=== PATIENT | male | born 1995 | race Caucasian/White ===

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

== ENCOUNTER 2017-09-02 19:32 | Emergency (ER) | payer OTHER ==
[2017-09-02 19:45] VITALS: BP 116/71
--- NOTE | 2017-09-02 20:06 | ER Document Report ---
ED General - General Chief Complaint: Medication Refill Stated Complaint: MED REFILL Time Seen by Provider: 09/02/17 19:57 Mode of Arrival: Ambulatory Information source: Patient, [facility] Records Notes: 22-year-old male diabetic has run out of his Humalog FlexPen. Needs refill. Has an appointment with his doctor on September 25 of this year. No other complaints. States he does have enough of his Lantus. TRAVEL OUTSIDE OF THE [place] IN LAST 30 DAYS: No - Related Data Allergies/Adverse Reactions: No Known Allergies Allergy (Verified 09/30/16 21:07) Past Medical History - General Information source: Patient, [facility] Records - Social History Smoking Status: Former Smoker Cigarette use (# per day): No Chew tobacco use (# tins/day): Yes Smoking Education Provided: No Frequency of alcohol use: Rare Drug Abuse: None Occupation: Unemployed Lives with: Parents Family History: Arthritis, CAD, COPD, CVA, DM, Hyperlipidemia, Hypertension, Thyroid Disfunction Patient has suicidal ideation: No Patient has homicidal ideation: No - Past Medical History Cardiac Medical History: Reports: None Pulmonary Medical History: Reports: None EENT Medical History: Reports: None Neurological Medical History: Reports: Hx Migraine Endocrine Medical History: Reports: Hx Diabetes Mellitus Type 1 Renal/ Medical History: Reports: None GI Medical History: Reports: Hx Gastroesophageal Reflux Disease Musculoskeltal Medical History: Reports None Skin Medical History: Reports None Psychiatric Medical History: Reports: Hx Bipolar Disorder, Hx Depression Past Surgical History: Reports: Hx Myringotomy, Hx Orthopedic Surgery - right hand - Immunizations Immunizations up to date: Yes Hx Diphtheria, Pertussis, Tetanus Vaccination: Yes - 2016 Review of Systems - Review of Systems Constitutional: No symptoms reported EENT: No symptoms reported Cardiovascular: No symptoms reported Respiratory: No symptoms reported Gastrointestinal: No symptoms reported Genitourinary: No symptoms reported Musculoskeletal: No symptoms reported Skin: No symptoms reported Hematologic/Lymphatic: No symptoms reported Neurological/Psychological: No symptoms reported Physical Exam - Vital signs Vitals: Temp Pulse Resp BP Pulse Ox 97.7 F 71 14 116/71 100 09/02/17 19:43 09/02/17 19:43 09/02/17 19:43 09/02/17 19:43 09/02/17 19:43 Interpretation: Normal - General General appearance: Appears well, Alert In distress: None - HEENT Head: Normocephalic, Atraumatic Eyes: Normal Pupils: PERRL - Respiratory Respiratory status: No respiratory distress - Cardiovascular Rhythm: Regular - Abdominal Inspection: Normal - Back Back: Normal - Extremities General upper extremity: Normal inspection General lower extremity: Normal inspection - Neurological Neuro grossly intact: Yes - Psychological Associated symptoms: Normal affect, Normal mood - Skin Skin Temperature: Warm Skin Moisture: Dry Skin Color: Normal Course - Vital Signs Vital signs: Temp Pulse Resp BP Pulse Ox 97.7 F 71 14 116/71 100 09/02/17 19:43 09/02/17 19:43 09/02/17 19:43 09/02/17 19:43 09/02/17 19:43 Discharge - Discharge Clinical Impression: Encounter for medication refill Condition: Stable Disposition: HOME, SELF-CARE Additional Instructions: Take the medication as prescribed. Follow up with your doctor on September 25 as scheduled. RETURN TO THE EMERGENCY ROOM IF ANY NEW OR WORSENING SYMPTOMS. Prescriptions: Insulin Lispro [Humalog Kwikpen U-100] 100 unit SQ ASDIR PRN #5 [email or web address] PRN Reason:
== END 2017-09-02 20:10 | disposition home or self-care (01) ==
LOC: ER 19:32
DX: Z76.0 Encounter for issue of repeat prescription (principal); E11.9 Type 2 diabetes mellitus without complications; Z79.4 Long term (current) use of insulin; Z87.891 Personal history of nicotine dependence
CPT/HCPCS: 99281

== ENCOUNTER 2018-01-28 13:19 | Emergency (ER) | payer OTHER ==
--- NOTE | 2018-01-28 14:37 | ER Document Report ---
ED Skin Rash/Insect Bite/Abscs - General Chief Complaint: Ear Pain Stated Complaint: EAR PAIN Time Seen by Provider: 01/28/18 14:28 Mode of Arrival: Ambulatory Information source: Patient TRAVEL OUTSIDE OF THE [place] IN LAST 30 DAYS: No - HPI Patient complains to provider of: Tender/swollen area Notes: Patient is here with complaints of swelling and tenderness to the right earlobe. States there is a area to the posterior aspect of the right earlobe that was tender and swollen this morning. He states that his girlfriend squeezed it and there was some pus that came out but they feel like they are still stuff inside the earlobe. No fever. States that he had a headache and vomiting a few days ago, but denies any headache or vomiting today. He is a diabetic. He denies any chest pain or shortness of breath. No redness. Had a pilonidal abscess in the past. He denies any allergies. He denies any other complaints at this time. - Related Data Allergies/Adverse Reactions: No Known Allergies Allergy (Verified 09/30/16 21:07) Past Medical History - Social History Smoking Status: Current Every Day Smoker Chew tobacco use (# tins/day): No Frequency of alcohol use: None Drug Abuse: None Family History: Arthritis, CAD, COPD, CVA, DM, Hyperlipidemia, Hypertension, Thyroid Disfunction Patient has suicidal ideation: No Patient has homicidal ideation: No - Past Medical History Cardiac Medical History: Denies: Hx Congestive Heart Failure, Hx Coronary Artery Disease, Hx Heart Attack, Hx Hypertension Pulmonary Medical History: Denies: Hx Asthma, Hx Bronchitis, Hx COPD, Hx Pneumonia, Hx Tuberculosis Neurological Medical History: Reports: Hx Migraine. Denies: Hx Cerebrovascular Accident, Hx Seizures Endocrine Medical History: Reports: Hx Diabetes Mellitus Type 1 Renal/ Medical History: Denies: Hx Benign Prostatic Hyperplasia, Hx End Stage Renal Disease, Hx Kidney Stones, Hx Peritoneal Dialysis GI Medical History: Reports: Hx Gastroesophageal Reflux Disease. Denies: Hx Cirrhosis, Hx Ulcer Musculoskeltal Medical History: Denies Hx Arthritis, Denies Hx Multiple Sclerosis Psychiatric Medical History: Reports: Hx Bipolar Disorder, Hx Depression Denies: Hx Schizophrenia Past Surgical History: Reports: Hx Myringotomy, Hx Orthopedic Surgery - right hand - Immunizations Immunizations up to date: Yes Hx Diphtheria, Pertussis, Tetanus Vaccination: Yes - 2017 Review of Systems - Review of Systems -: Yes All other systems reviewed and negative Physical Exam - Vital signs Vitals: Temp Pulse Resp BP Pulse Ox 99.0 F 74 16 115/65 97 01/28/18 13:42 01/28/18 13:42 01/28/18 13:42 01/28/18 13:42 01/28/18 13:42 - Notes Notes: GENERAL: alert, cooperative, nontoxic, no distress. HEAD: normocephalic, atraumatic EYES: conjunctiva pink without discharge, no external redness or swelling. EARS: Soft fluctuant tender abscess to the right earlobe on the posterior aspect. No significant redness. Mild tenderness to palpation. Mastoid is unremarkable. NOSE: atraumatic, no external swelling MOUTH/THROAT: mucous membranes moist and pink NECK: soft, supple, full range of motion, no meningismus. CHEST: no distress, lungs clear and equal throughout. No wheezing, rales, rhonchi. CARDIAC: regular rate and rhythm, no murmur, normal capillary refill, normal pulses. BACK: full range of motion, no CVA tenderness. EXTREMITIES: full range of motion of all extremities. No redness, no swelling. NEURO: alert and oriented 3, no focal deficits, full range of motion of all extremities. PYSCH: appropriate mood, affect. Patient is cooperative. SKIN: pink, warm, dry, no rash. Course - Re-evaluation Re-evalutation: 01/28/18 15:08 Patient is nontoxic appearing stable vitals. Is here with complaints of abscess to the right earlobe. He is noted to have a small fluctuant abscess to the posterior aspect of the right earlobe. No significant cellulitis. No fever. The patient is a diabetic. Was able to express a moderate amount of purulent material from the earlobe. Sterile dressing was applied. The patient will be placed on Bactrim due to his history of abscess and diabetes. He was instructed to apply warm compresses sore area. He states it does not hurt significantly, so he was instructed to take Tylenol or Motrin as needed for pain. Apply warm compresses. Follow-up if not improved in the next 2 days, sooner for worsening pain, fever, numbness, tingling, weakness, any further concerns. The patient's emergency department workup and current diagnosis were explained to the patient and or family. Follow-up instructions were provided. Medications if prescribed were discussed. Instructions for when to return to the emergency department including specific worrisome symptoms were discussed with the patient and/or family. - Vital Signs Vital signs: Temp Pulse Resp BP Pulse Ox 99.0 F 74 16 115/65 97 01/28/18 13:42 01/28/18 13:42 01/28/18 13:42 01/28/18 13:42 01/28/18 13:42 Procedures - Incision and Drainage right ear lobe Type: Simple Anesthetic type: 1% Lidocaine Blade size: 11 I&D procedure: Shurclens applied Incision Method: Incision made by scalpel Amount/type of drainage: moderate purulent Discharge - Discharge Clinical Impression: Abscess, earlobe Qualifiers: Laterality: right Qualified Code(s): H60.01 - Abscess of right external ear Condition: Stable Disposition: HOME, SELF-CARE Instructions: Abscess ([facility]), Post Incision and Drainage, Trimethoprim-Sulfa ( [facility]) Additional Instructions: Take medication as prescribed. Apply warm compresses to sore area. Take Tylenol and Motrin as needed for pain. Follow-up if not improved in the next 2- 3 days, sooner for worsening pain, fever, swelling, redness, [id number] blood sugar, or for any further concerns. Prescriptions: Sulfamethoxazole/Trimethoprim [Bactrim Ds Tablet] 1 each PO BID #20 tablet Forms: Smoking Cessation Education Referrals: [facility] [Provider Group] - Follow up as needed
[2018-01-28 15:36] VITALS: BP 117/70
== END 2018-01-28 15:36 | disposition home or self-care (01) ==
LOC: ER 13:19
PROC: 0H92XZZ Drainage of Right Ear Skin, External Approach (ICD-10-PCS; principal; 2018-01-28)
DX: H60.01 Abscess of right external ear (principal); F17.200 Nicotine dependence, unspecified, uncomplicated; E10.9 Type 1 diabetes mellitus without complications
CPT/HCPCS: 99283

== ENCOUNTER 2018-05-16 13:53 | Inpatient (IN) | payer OTHER ==
[2018-05-16] MEDS ORDERED: NORMAL SALINE 1000 ML 1,000 ML IV ONE ×2 (14:22→19:01)
[2018-05-16] MEDS ORDERED: INSULIN REG, HUMAN 100 UNIT/ML 3 ML VIAL (PYX) IV ONE (14:24)
[2018-05-16] MEDS ORDERED: NORMAL SALINE 1000 ML 1,000 ML IV PRN ×2 (14:25→20:38)
--- NOTE | 2018-05-16 14:26 | ER Document Report ---
ED Medical Screen (RME) - General Chief Complaint: High Blood Sugar Stated Complaint: BLOOD SUGAR ISSUES Time Seen by Provider: 05/16/18 14:20 Notes: 22 years old male with a history of type 1 diabetes, was not checking his blood sugar for the last few days because he ran out of the strips. This morning he was able to check and he found it to be around 580 therefore present to the ED. With nausea and general malaise and abdominal discomfort. TRAVEL OUTSIDE OF THE [place] IN LAST 30 DAYS: No - Related Data Allergies/Adverse Reactions: No Known Allergies Allergy (Verified 05/16/18 13:54) Past Medical History - Social History Chew tobacco use (# tins/day): Yes - Past Medical History Cardiac Medical History: Denies: Hx Congestive Heart Failure, Hx Coronary Artery Disease, Hx Heart Attack, Hx Hypertension Pulmonary Medical History: Denies: Hx Asthma, Hx Bronchitis, Hx COPD, Hx Pneumonia, Hx Tuberculosis Neurological Medical History: Reports: Hx Migraine. Denies: Hx Cerebrovascular Accident, Hx Seizures Endocrine Medical History: Reports: Hx Diabetes Mellitus Type 1 Renal/ Medical History: Denies: Hx Benign Prostatic Hyperplasia, Hx End Stage Renal Disease, Hx Kidney Stones, Hx Peritoneal Dialysis GI Medical History: Reports: Hx Gastroesophageal Reflux Disease. Denies: Hx Cirrhosis, Hx Ulcer Musculoskeltal Medical History: Denies Hx Arthritis, Denies Hx Multiple Sclerosis Psychiatric Medical History: Reports: Hx Bipolar Disorder, Hx Depression Denies: Hx Schizophrenia Past Surgical History: Reports: Hx Myringotomy, Hx Orthopedic Surgery - right hand - Immunizations Immunizations up to date: Yes Hx Diphtheria, Pertussis, Tetanus Vaccination: Yes - 2017 Physical Exam - Vital signs Vitals: Temp Pulse Resp BP Pulse Ox 98.2 F 99 12 125/72 98 05/16/18 14:00 05/16/18 14:00 05/16/18 14:00 05/16/18 14:00 05/16/18 14:00 Course - Vital Signs Vital signs: Temp Pulse Resp BP Pulse Ox 98.2 F 99 12 125/72 98 05/16/18 14:00 05/16/18 14:00 05/16/18 14:00 05/16/18 14:00 05/16/18 14:00 Doctor's Discharge - Discharge Referrals: ANIA HAMM FNP [Primary Care Provider] - Follow up as needed
[2018-05-16 15:19] LABS: ABSOLUTE EOSINOPHILS # (AUTO) 0.1 10^3/uL (0.0-0.6); ABSOLUTE LYMPHOCYTES (AUTO) 1.8 10^3/uL (0.5-4.7); ABSOLUTE MONOCYTES (AUTO) 0.9 10^3/uL (0.1-1.4); ABSOLUTE NEUT (AUTO) 9.3 10^3/uL (1.7-8.2); BASOPHILS % (AUTO) 0.2 % (0-2); EOSINOPHILS % (AUTO) 0.6 % (0-6); HEMATOCRIT 48.5 % (37.9-51.0); HEMOGLOBIN 16.4 g/dL (13.5-17.0); LYMPHOCYTES % (AUTO) 15.1 % (13-45); MEAN CORPUSCULAR HEMOGLOBIN 32.2 pg (27.0-33.4); MEAN CORPUSCULAR HGB CONC 33.9 g/dL (32.0-36.0); MEAN CORPUSCULAR VOLUME 95 fl (80-97); MONOCYTES % (AUTO) 7.6 % (3-13); PLATELET COUNT 269 10^3/uL (150-450); RED BLOOD COUNT 5.11 10^6/uL (4.35-5.55); RED CELL DISTRIBUTION WIDTH 13.2 % (11.5-14.0); SEGMENTED NEUTROPHILS % (AUTO) 76.5 % (42-78); TOTAL CELLS COUNTED % (AUTO) 100 %; WHITE BLOOD COUNT 12.1 10^3/uL (4.0-10.5)
[2018-05-16 15:23] LABS: APPEARANCE,URINE CLEAR; BILIRUBIN,URINE NEGATIVE (NEGATIVE); COLOR,URINE YELLOW; GLUCOSE, URINE >=500 mg/dL (NEGATIVE); KETONES,URINE 80 mg/dL (NEGATIVE); LEUKOCYTE ESTERASE,URINE NEGATIVE (NEGATIVE); NITRITE,URINE NEGATIVE (NEGATIVE); PROTEIN,URINE 30 mg/dL (NEGATIVE); URINE SPECIFIC GRAVITY 1.028; UROBILINOGEN,URINE NEGATIVE mg/dL (<2.0)
[2018-05-16 15:41] LABS: ALANINE AMINOTRANSFERASE 24 U/L (21-72); ALBUMIN 5.2 g/dL (3.5-5.0); ALKALINE PHOSPHATASE 102 U/L (38-126); ASPARTATE AMINO TRANSFERASE 17 U/L (17-59); BILIRUBIN,DIRECT 0.6 mg/dL (0.0-0.4); BILIRUBIN,TOTAL 1.6 mg/dL (0.2-1.3); BLOOD UREA NITROGEN 14 mg/dL (7-20); GLUCOSE 319 mg/dL (75-110); POTASSIUM 5.5 mmol/L (3.6-5.0); TOTAL PROTEIN 8.1 g/dL (6.3-8.2)
[2018-05-16 15:49] LABS: CARBON DIOXIDE 15 mmol/L (22-30); CHLORIDE 103 mmol/L (98-107); SODIUM 139.6 mmol/L (137-145)
[2018-05-16 15:51] LABS: ANION GAP 22 (5-19)
[2018-05-16] MEDS ORDERED: ONDANSETRON 4 MG TAB.RAPDIS PO ONE (18:17)
[2018-05-16 18:49] LABS: VENOUS BLOOD BASE EXCESS -14.7 mmol/L; VENOUS BLOOD HCO3 12.2 mmol/L (20-32); VENOUS BLOOD PCO2 32.6 mmHg (35-63)
[2018-05-16] MEDS ORDERED: ONDANSETRON HCL INJ/PF 4 MG/2 ML SDV IV ONE (18:51)
[2018-05-16 18:53] LABS: VENOUS BLOOD PH 7.19 (7.30-7.42)
--- NOTE | 2018-05-16 18:53 | ER Document Report ---
ED General - General Chief Complaint: High Blood Sugar Stated Complaint: BLOOD SUGAR ISSUES Time Seen by Provider: 05/16/18 14:20 Notes: Patient is a 22-year-old male with history of diabetes mellitus type 1 that presents to the emergency department for chief complaint of High blood sugar, nausea and vomiting. Patient states that he missed his dose of Lantus usually has a 32 units at night, and this morning around 7 AM he started feeling very nauseous, had abdominal cramping, he took his blood glucose in the right greater than 500 so he came to the emergency department. He has had near DKA in the past, but has not been admitted for. He states that he feels extremely nauseous, has vomited several times. Denies having any recent fevers, chills, night sweats, chest pain, shortness of breath, difficulty breathing, dysuria or hematuria. He does admit to having polydipsia polyuria. He usually does use a sliding scale and Humalog with meals which she did not receive today. Past Medical History: Diabetes mellitus, bipolar disorder Past Surgical History: Tympanostomy tubes, finger surgery Social History: Admits to chewing tobacco, alcohol or drug use Family History: Reviewed and noncontributory for presenting illness Allergies: Reviewed, see documented allergy list. REVIEW OF SYSTEMS: Unless otherwise stated in this report the patient's positive and negative responses for review of systems for constitutional, eyes, ENT, cardiovascular, respiratory, gastrointestinal, neurological, genitourinary, musculoskeletal, and integumentary systems and related systems to the presenting problem are either as stated in the HPI or were not pertinent or were negative for the symptoms and/or complaints related to the presenting medical problem. PHYSICAL EXAMINATION: Vital signs reviewed, nursing noted reviewed. GENERAL: Ill-appearing male, appears uncomfortable, dry heaving HEAD: Atraumatic, normocephalic. EYES: Eyes appear normal, extraocular movements intact, sclera anicteric, conjunctiva are normal. ENT: nares patent, oropharynx clear without exudates. Dry mucous membranes NECK: Normal range of motion, supple without lymphadenopathy LUNGS: Breath sounds clear to auscultation bilaterally and equal. No wheezes rales or rhonchi. HEART: Regular rate and rhythm without murmurs ABDOMEN: Soft, mild diffuse abdominal tenderness, normoactive bowel sounds. No rebound, guarding, or rigidity. No masses appreciated. EXTREMITIES: Nontender, good range of motion, no pitting or edema. NEUROLOGICAL: No focal neurological deficits. Moves all extremities spontaneously Motor and sensory grossly intact on exam. PSYCH: He is uncomfortable, but appropriate SKIN: Warm, Dry, normal turgor, no rashes or lesions noted on exposed skin TRAVEL OUTSIDE OF THE [place] IN LAST 30 DAYS: No - Related Data Allergies/Adverse Reactions: No Known Allergies Allergy (Verified 05/16/18 13:54) Past Medical History - Social History Smoking Status: Never Smoker Chew tobacco use (# tins/day): Yes Family History: Arthritis, CAD, COPD, CVA, DM, Hyperlipidemia, Hypertension, Thyroid Disfunction Patient has suicidal ideation: No Patient has homicidal ideation: No - Past Medical History Cardiac Medical History: Denies: Hx Congestive Heart Failure, Hx Coronary Artery Disease, Hx Heart Attack, Hx Hypertension Pulmonary Medical History: Denies: Hx Asthma, Hx Bronchitis, Hx COPD, Hx Pneumonia, Hx Tuberculosis Neurological Medical History: Reports: Hx Migraine. Denies: Hx Cerebrovascular Accident, Hx Seizures Endocrine Medical History: Reports: Hx Diabetes Mellitus Type 1 Renal/ Medical History: Denies: Hx Benign Prostatic Hyperplasia, Hx End Stage Renal Disease, Hx Kidney Stones, Hx Peritoneal Dialysis GI Medical History: Reports: Hx Gastroesophageal Reflux Disease. Denies: Hx Cirrhosis, Hx Ulcer Musculoskeletal Medical History: Denies Hx Arthritis, Denies Hx Multiple Sclerosis Psychiatric Medical History: Reports: Hx Bipolar Disorder, Hx Depression Denies: Hx Schizophrenia Past Surgical History: Reports: Hx Myringotomy, Hx Orthopedic Surgery - right hand - Immunizations Immunizations up to date: Yes Hx Diphtheria, Pertussis, Tetanus Vaccination: Yes - 2016 Physical Exam - Vital signs Vitals: Temp Pulse Resp BP Pulse Ox 98.2 F 99 12 125/72 98 05/16/18 14:00 05/16/18 14:00 05/16/18 14:00 05/16/18 14:00 05/16/18 14:00 Course - Re-evaluation Re-evalutation: Patient seen and examined vital signs reviewed. Laboratory data and imaging were ordered as appropriate for the patient's presenting symptoms and complaint, with consideration of any critical or life threatening conditions that may be associated with their obtained history and exam as noted above. Patient was treated with IV fluids, given a total of half liter bolus, is given IV Zofran, and Phenergan for his intractable nausea, I then started the patient on IV insulin infusion. For diabetic ketoacidosis. Results were reviewed when available and demonstrated metabolic acidosis, with anion gap of 22, consistent with diabetic ketoacidosis, his repeat sugar, was 419 at bedside, this is on the patient was started on insulin infusion, I then ordered a repeat BMP since it had been about 4 hours since his presenting BMP, this was reviewed and demonstrated worsening acidosis, but anion gap improved to 21. This was drawn just prior to starting his insulin infusion, and I suspect that the patient will be improving, in the next 4 hours. The patient was re-evaluated and was still having some nausea, and dry heaving Evaluation was most consistent with acute diabetic ketoacidosis Results were discussed with the patient at this point after careful consideration I feel that that patient should be admitted to the hospital. This was discussed with the patient that it is in the best interest for their care to be admitted for further evaluation and management. Patient agreed with this plan of care. A call was placed to the admitted physician, Dr. Medina who graciously accepted the patient onto their service. *Note is created using voice recognition software and may contain spelling, syntax or grammatical errors. Laboratory 05/16/18 05/16/18 05/16/18 14:50 14:50 14:50 WBC 12.1 H RBC 5.11 Hgb 16.4 Hct 48.5 MCV 95 MCH 32.2 MCHC 33.9 RDW 13.2 Plt Count 269 Seg Neutrophils % 76.5 Lymphocytes % 15.1 Monocytes % 7.6 Eosinophils % 0.6 Basophils % 0.2 Absolute Neutrophils 9.3 H Absolute Lymphocytes 1.8 Absolute Monocytes 0.9 Absolute Eosinophils 0.1 Absolute Basophils 0.0 VBG pH VBG pCO2 VBG HCO3 VBG Base Excess Sodium 139.6 Potassium 5.5 H Chloride 103 Carbon Dioxide 15 L Anion Gap 22 H BUN 14 Creatinine 0.74 Est GFR ( Amer) > 60 Est GFR (Non-Af Amer) > 60 Glucose 319 H Calcium 10.0 Total Bilirubin 1.6 H Direct Bilirubin 0.6 H Neonat Total Bilirubin Not Reportable Neonat Direct Bilirubin Not Reportable Neonat Indirect Bili Not Reportable AST 17 ALT 24 Alkaline Phosphatase 102 Total Protein 8.1 Albumin 5.2 H Urine Color YELLOW Urine Appearance CLEAR Urine pH 5.0 Ur Specific Elliott 1.028 Urine Protein 30 H Urine Glucose (UA) >=500 H Urine Ketones 80 H Urine Blood NEGATIVE Urine Nitrite NEGATIVE Urine Bilirubin NEGATIVE Urine Urobilinogen NEGATIVE Ur Leukocyte Esterase NEGATIVE Urine WBC (Auto) 0 Urine RBC (Auto) 0 U Hyaline Cast (Auto) 1 Urine Mucus (Auto) RARE Urine Ascorbic Acid NEGATIVE 05/16/18 05/16/18 18:30 20:00 WBC RBC Hgb Hct MCV MCH MCHC RDW Plt Count Seg Neutrophils % Lymphocytes % Monocytes % Eosinophils % Basophils % Absolute Neutrophils Absolute Lymphocytes Absolute Monocytes Absolute Eosinophils Absolute Basophils VBG pH 7.19 L* VBG pCO2 32.6 L VBG HCO3 12.2 L VBG Base Excess -14.7 Sodium 138.7 Potassium 5.0 Chloride 108 H Carbon Dioxide 10 L* Anion Gap 21 H BUN 14 Creatinine 0.73 Est GFR ( Amer) > 60 Est GFR (Non-Af Amer) > 60 Glucose 385 H Calcium 8.9 Total Bilirubin Direct Bilirubin Neonat Total Bilirubin Neonat Direct Bilirubin Neonat Indirect Bili AST ALT Alkaline Phosphatase Total Protein Albumin Urine Color Urine Appearance Urine pH Ur Specific Elliott Urine Protein Urine Glucose (UA) Urine Ketones Urine Blood Urine Nitrite Urine Bilirubin Urine Urobilinogen Ur Leukocyte Esterase Urine WBC (Auto) Urine RBC (Auto) U Hyaline Cast (Auto) Urine Mucus (Auto) Urine Ascorbic Acid - Vital Signs Vital signs: Temp Pulse Resp BP Pulse Ox 98.2 F 99 16 125/72 97 05/16/18 14:00 05/16/18 14:00 05/16/18 19:32 05/16/18 14:00 05/16/18 19:32 - Laboratory Result Diagrams: 05/16/18 14:50 05/16/18 20:00 Laboratory results interpreted by me: 05/16/18 05/16/18 05/16/18 14:50 14:50 14:50 WBC 12.1 H Absolute Neutrophils 9.3 H VBG pH VBG pCO2 VBG HCO3 Potassium 5.5 H Carbon Dioxide 15 L Anion Gap 22 H Glucose 319 H Total Bilirubin 1.6 H Direct Bilirubin 0.6 H Albumin 5.2 H Urine Protein 30 H Urine Glucose (UA) >=500 H Urine Ketones 80 H 05/16/18 18:30 WBC Absolute Neutrophils VBG pH 7.19 L* VBG pCO2 32.6 L VBG HCO3 12.2 L Potassium Carbon Dioxide Anion Gap Glucose Total Bilirubin Direct Bilirubin Albumin Urine Protein Urine Glucose (UA) Urine Ketones Critical Care Note - Critical Care Note Total time excluding time spent on procedures (mins): 45 Comments: Critical care time 45 minutes exclusive from separate billable procedures for a patient requiring complex medical decision making, and high potential for clinical deterioration. In a patient with acute diabetic ketoacidosis, requiring fluid resuscitation, IV insulin, and frequent reassessments. Time spent obtaining history from patient or surrogate, discussions with consultants , development of treatment plan with patient or surrogate, evaluation of patient 's response to treatment, examination of patient, ordering and performing treatments and interventions, ordering and review of laboratory studies, re- evaluation of patient's condition, ordering and review of radiographic studies and review of old charts Discharge - Discharge Clinical Impression: Hyperkalemia Diabetic ketoacidosis Qualifiers: Diabetes mellitus type: type 1 Diabetes mellitus complication detail: without coma Qualified Code(s): E10.10 - Type 1 diabetes mellitus with ketoacidosis without coma Leukocytosis Qualifiers: Leukocytosis type: unspecified Qualified Code(s): D72.829 - Elevated white blood cell count, unspecified Condition: Serious Disposition: ADMITTED INPATIENT Admitting Provider: Hospitalist - Dr. Medina Unit Admitted: ICU
[2018-05-16] MEDS ORDERED: INSULIN REG, HUMAN 100 UNIT/ML 3 ML VIAL (PYX) ONE (19:24)
[2018-05-16] MEDS: NORMAL SALINE 100 ML with INSULIN REGULAR, HUMAN 100 UNIT IV PRN ×2 (19:27)
[2018-05-16] MEDS ORDERED: PROMETHAZINE HCL INJ 25 MG/1 ML VIAL IV ONE (19:34)
[2018-05-16] MEDS ORDERED: NORMAL SALINE 500 ML IV ONE (19:35)
[2018-05-16 20:28] LABS: BLOOD UREA NITROGEN 14 mg/dL (7-20); CALCIUM 8.9 mg/dL (8.4-10.2); CHLORIDE 108 mmol/L (98-107); GLUCOSE 385 mg/dL (75-110)
[2018-05-16 20:34] LABS: SODIUM 138.7 mmol/L (137-145)
[2018-05-16 20:35] LABS: ANION GAP 21 (5-19)
[2018-05-16 20:37] LABS: CARBON DIOXIDE 10 mmol/L (22-30)
[2018-05-16] MEDS ORDERED: DEXTROSE 40% GEL 15 GM TUBE PO PRN ×4 (20:38→20:46)
[2018-05-16] MEDS ORDERED: ACETAMINOPHEN 325 MG TABLET PO PRN (20:38)
[2018-05-16] MEDS ORDERED: DEXTROSE 50%-WATER 25 GM/50 ML DISP.SYRIN IV PRN ×4 (20:38→20:46)
[2018-05-16] MEDS ORDERED: PROMETHAZINE HCL INJ 25 MG/1 ML VIAL IV PRN (20:38)
[2018-05-16] MEDS ORDERED: GLUCAGON,HUMAN RECOMB 1 MG INJ SUBCUT PRN (20:38)
[2018-05-16] MEDS ORDERED: MAG HYDROX/AL HYDROX/SIMETH SUSP 30 ML UDCUP PO PRN (20:38)
[2018-05-16] MEDS ORDERED: NORMAL SALINE 1000 ML 500 ML IV ONE (20:44)
[2018-05-16] MEDS ORDERED: GLUCAGON,HUMAN RECOMB 1 MG INJ IM PRN (20:46)
[2018-05-16] MEDS ORDERED: PANTOPRAZOLE SODIUM 40 MG VIAL IV ONE (22:00)
[2018-05-16] MEDS ORDERED: SODIUM BICARBONATE 8.4% INJ 50 MEQ/50 ML DISP.SYRIN IV ONE (22:05)
--- NOTE | 2018-05-16 22:15 | PDOC H&P ---
History of Present Illness Admission Date/PCP: 05/16/18 19:57 STANLEY SZYMANSKI MD Patient complains of: High blood sugar History of Present Illness: JAMIL WYLIE is a 22 year old male accompanied by his mother who is at the bedside. Patient has diabetes mellitus type 1 diagnosed when he was 13 years old. Mother tells me that he has been having his blood sugar elevated for the last week, apparently he is been missing medications lately, patient has moved with his fiance and when he used to live with his mother who was very compliant with his medications. He is on Lantus 29 units at night and he uses NovoLog and count carbs. Earlier he called his mother and told her that his last strip was 521, he ran out of his strips and the pharmacy was closed. He was found by his fiance sick, pale, laying on the floor, nauseated, vomiting, complaining of abdominal pain and shortness of breath. EMS was called. Apparently his last A1c was 9.3 about a month ago. Patient is laying on the bed, looks ill, weeks but is not providing me in information as does not feel like talking. In the emergency department 2.5 L of IV fluids given. PH 7.19, bicarb 12, anion gap 22. Patient will be admitted for DKA. Initial blood sugar more than 600 mg/dL. Recheck in triage 319 mg/dL, after that 419 mg/dL. no insulin given, order insulin infusion. Past Medical History Neurological Medical History: Reports: Migraine Denies: Seizures Endocrine Medical History: Reports: Diabetes Mellitus Type 1 GI Medical History: Reports: Gastroesophageal Reflux Disease Denies: Cirrhosis Musculoskeltal Medical History: Denies: Arthritis Psychiatric History Note: Intermittent explosive disorder Past Surgical History Past Surgical History: Reports: Other - ear tubes when was 5 months old Social History Smoking Status: Never Smoker Frequency of Alcohol Use: None Hx Recreational Drug Use: Yes Drugs: Marijuana Hx Prescription Drug Abuse: No Family History Family History: Mother is 41 years old at bedside with history of migraine headaches. Father 41 years old with history of hypertension Parental Family History Reviewed: Yes - As above Children Family History Reviewed: NA Sibling(s) Family History Reviewed.: NA Medication/Allergy Home Medications: Ergocalciferol (Vitamin D2) [Drisdol 50,000 unit (1.25MG) Capsule] 50,000 unit PO ANDERSON 05/16/18 Insulin Glargine,Hum.rec.anlog [Lantus Solostar] 32 units SQ QHS 05/16/18 Insulin Lispro [Humalog Kwikpen U-100] 0 units SQ .PERSLIDINGSCALE 05/16/18 Lamotrigine [Lamictal] 200 mg PO DAILY 05/16/18 Olanzapine [Zyprexa] 20 mg PO QPM 05/16/18 Allergies/Adverse Reactions: No Known Allergies Allergy (Verified 05/16/18 13:54) Review of Systems Review of Systems: As outlined above, others negative Physical Exam Vital Signs: Temp Pulse Resp BP Pulse Ox 98.2 F 99 16 125/72 97 05/16/18 14:00 05/16/18 14:00 05/16/18 19:32 05/16/18 14:00 05/16/18 19:32 Intake & Output 05/15/18 05/16/18 05/17/18 06:59 06:59 06:59 Intake Total 1500 Balance 1500 Additional comments: General appearance: Well-developed, well-nourished, alert and cooperative, and appears to be in acute distress secondary to illness Head: Normocephalic Eyes: PEERL, EOMI, vision is grossly intact. Ears: External auditory canal and tympanic membranes clear, hearing grossly intact. Nose: No nasal discharge. Throat: Oral cavity and pharynx dry. No inflammation, swelling, exudate or lesions. Neck: Neck supple, nontender without lymphadenopathy, masses or thyromegaly. Cardiac: Normal S1 and S2. No S3, S4 or murmurs. Rhythm is regular. There is no peripheral edema, cyanosis or pallor. Extremities are warm and well perfused. Capillary refill is less than 2 seconds. No carotid bruits. Lungs: Clear to auscultation and percussion without rales, rhonchi, wheezing or diminished breath sounds. Not using accessory muscles. Abdomen: Positive bowel sounds. Soft. Nondistended, nontender. No guarding or rebound. No masses. No hepatosplenomegaly Extremities: No significant deformity or joint abnormality. No edema. Peripheral pulses intact. No varicosities. Neurological: Cranial nerves II through XII grossly intact. Strength and sensation symmetric and intact throughout. Reflexes 2+ throughout. Skin: Skin normal color, texture and turgor with no lesions or eruptions, warm and dry. Psychiatric: The mental examination revealed the patient was oriented to person , place, and time. The patient was able to demonstrate good judgment on recent , without hallucinations, abnormal affect or abnormal behaviors. Results Laboratory Results: 05/16/18 20:00 05/16/18 20:00 Sodium 138.7 Potassium 5.0 Chloride 108 H Carbon Dioxide 10 L* Anion Gap 21 H BUN 14 Creatinine 0.73 Est GFR ( Amer) > 60 Est GFR (Non-Af Amer) > 60 Glucose 385 H Calcium 8.9 05/16/18 05/16/18 14:50 18:30 VBG pH 7.19 L* VBG pCO2 32.6 L VBG HCO3 12.2 L VBG Base Excess -14.7 Urine Color YELLOW Urine Appearance CLEAR Urine pH 5.0 Ur Specific [place] 1.028 Urine Protein 30 H Urine Glucose (UA) >=500 H Urine Ketones 80 H Urine Blood NEGATIVE Urine Nitrite NEGATIVE Urine Bilirubin NEGATIVE Urine Urobilinogen NEGATIVE Ur Leukocyte Esterase NEGATIVE Urine WBC (Auto) 0 Urine RBC (Auto) 0 U Hyaline Cast (Auto) 1 Urine Mucus (Auto) RARE Urine Ascorbic Acid NEGATIVE Assessment & Plan - Diagnosis (1) Diabetic ketoacidosis Qualifiers: Diabetes mellitus type: type 1 Diabetes mellitus complication detail: without coma Qualified Code(s): E10.10 - Type 1 diabetes mellitus with ketoacidosis without coma Is this a current diagnosis for this admission?: Yes Plan: Patient comes with DKA, likely secondary to noncompliance with medications. We are going to rule out sources of infection, so far urinalysis negative, I am ordering chest x-ray. Accu-Cheks q. one hour, insulin lispro sliding scale, BMP every 4 hours, will continue with aggressive IV fluids hydration, to complete 3 L flow by normal saline at 150 cc/h. If do not reach correction of acidosis I will start the patient on insulin infusion, for now I will give 50 mEq of IV bicarbonate. Hemoglobin A1c 10.9. IV Reglan every 8 hours 3 doses. - Time Time Spent: 30 to 50 Minutes - Inpatient Certification Based on my medical assessment, after consideration of the patient's comorbidities, presenting symptoms, or acuity I expect that the services needed warrant INPATIENT care.: Yes I certify that my determination is in accordance with my understanding of Medicare's requirements for reasonable and necessary INPATIENT services [42 CFR 412.3e].: Yes Medical Necessity: Risk of Complication if Not Cared For in Hospital
[2018-05-16 23:15] LABS: APPEARANCE,URINE CLEAR; BILIRUBIN,URINE NEGATIVE (NEGATIVE); COLOR,URINE STRAW; GLUCOSE, URINE >=500 mg/dL (NEGATIVE); KETONES,URINE 80 mg/dL (NEGATIVE); LEUKOCYTE ESTERASE,URINE NEGATIVE (NEGATIVE); NITRITE,URINE NEGATIVE (NEGATIVE); PROTEIN,URINE NEGATIVE (NEGATIVE); URINE SPECIFIC GRAVITY 1.022; UROBILINOGEN,URINE NEGATIVE mg/dL (<2.0)
[2018-05-16] MEDS: INSULIN LISPRO 100 UNIT/ML 3 ML VIAL SUBCUT SCH ×2 (23:24→23:25)
--- NOTE | 2018-05-16 23:28 | RADIOLOGY REPORT (SQ) ---
EXAM DESCRIPTION: CLINICAL HISTORY: 22 years Male pneumonia COMPARISON: None. FINDINGS: The cardiomediastinal silhouette appears unremarkable. No consolidating infiltrates or pleural effusions. No pneumothorax. IMPRESSION: No acute abnormality is identified.
[2018-05-16 23:53] LABS: URINE AMPHETAMINES SCREEN NEGATIVE; URINE BARBITURATES SCREEN NEGATIVE; URINE BENZODIAZEPINES SCREEN NEGATIVE; URINE COCAINE SCREEN NEGATIVE; URINE MARIJUANA (THC) SCREEN UNCONFIRMED POSITIVE; URINE METHADONE SCREEN NEGATIVE; URINE PHENCYCLIDINE SCREEN NEGATIVE
[2018-05-17 00:29] LABS: ANION GAP 19 (5-19); BLOOD UREA NITROGEN 12 mg/dL (7-20); CALCIUM 8.7 mg/dL (8.4-10.2); CARBON DIOXIDE 13 mmol/L (22-30); CHLORIDE 109 mmol/L (98-107); GLUCOSE 200 mg/dL (75-110); POTASSIUM 4.6 mmol/L (3.6-5.0); SODIUM 140.6 mmol/L (137-145)
[2018-05-17] MEDS ORDERED: SODIUM BICARBONATE 8.4% INJ 50 MEQ/50 ML DISP.SYRIN IV ONE (02:44)
[2018-05-17] MEDS: METOCLOPRAMIDE HCL INJ/PF 10 MG/2 ML SDV IV SCH ×5 (03:53→22:40)
[2018-05-17] MEDS ORDERED: INSULIN GLARGINE,HUM.REC.ANLOG 300 UNIT/3 ML INSULN.PEN SUBCUT ONE ×2 (04:00→04:19)
[2018-05-17 05:10] LABS: ABSOLUTE EOSINOPHILS # (AUTO) 0.1 10^3/uL (0.0-0.6); ABSOLUTE LYMPHOCYTES (AUTO) 2.5 10^3/uL (0.5-4.7); ABSOLUTE MONOCYTES (AUTO) 1.1 10^3/uL (0.1-1.4); ABSOLUTE NEUT (AUTO) 11.2 10^3/uL (1.7-8.2); BASOPHILS % (AUTO) 0.1 % (0-2); EOSINOPHILS % (AUTO) 0.3 % (0-6); HEMATOCRIT 41.9 % (37.9-51.0); LYMPHOCYTES % (AUTO) 16.8 % (13-45); MEAN CORPUSCULAR HEMOGLOBIN 31.7 pg (27.0-33.4); MEAN CORPUSCULAR VOLUME 96 fl (80-97); MONOCYTES % (AUTO) 7.6 % (3-13); PLATELET COUNT 237 10^3/uL (150-450); RED BLOOD COUNT 4.36 10^6/uL (4.35-5.55); RED CELL DISTRIBUTION WIDTH 13.1 % (11.5-14.0); SEGMENTED NEUTROPHILS % (AUTO) 75.2 % (42-78); TOTAL CELLS COUNTED % (AUTO) 100 %; WHITE BLOOD COUNT 14.9 10^3/uL (4.0-10.5)
[2018-05-17 05:12] LABS: HEMOGLOBIN 13.8 g/dL (13.5-17.0)
[2018-05-17 05:36] LABS: ANION GAP 17 (5-19); BLOOD UREA NITROGEN 11 mg/dL (7-20); CALCIUM 8.4 mg/dL (8.4-10.2); CARBON DIOXIDE 13 mmol/L (22-30); CHLORIDE 109 mmol/L (98-107); GLUCOSE 187 mg/dL (75-110); POTASSIUM 4.3 mmol/L (3.6-5.0); SODIUM 138.7 mmol/L (137-145)
[2018-05-17] MEDS ORDERED: DEXTROSE 5%-1/2 NORMAL SALINE 1,000 ML IV PRN (06:49)
[2018-05-17] MEDS ORDERED: PROMETHAZINE HCL INJ 25 MG/1 ML VIAL IV PRN (07:30)
[2018-05-17] MEDS: INSULIN LISPRO 100 UNIT/ML 3 ML VIAL SUBCUT SCH ×9 (07:49→13:30)
[2018-05-17] MEDS: NORMAL SALINE 100 ML with INSULIN REGULAR, HUMAN 100 UNIT IV PRN ×2 (08:00)
[2018-05-17 08:58] LABS: ARTERIAL BLOOD H2CO3 0.78 mmol/L (1.05-1.35); ARTERIAL BLOOD HCO3 8.6 mmol/L (20-24); ARTERIAL BLOOD PO2 109.9 mmHg (80-100)
[2018-05-17 08:59] LABS: ARTERIAL BLOOD BASE EXCESS -18.8 mmol/L; ARTERIAL BLOOD O2 SATURATION 96.6 % (94-98); ARTERIAL BLOOD TOTAL CO2 9.4 mmol/L (23-27)
[2018-05-17 09:15] LABS: ARTERIAL BLOOD FIO2 ROOM AIR
[2018-05-17 09:16] LABS: ARTERIAL BLOOD PH 7.14 (7.35-7.45)
[2018-05-17] MEDS ORDERED: DEXTROSE 5%-WATER 1000 ML 1,000 ML with SODIUM BICARBONATE 150 MEQ IV PRN ×2 (09:28)
[2018-05-17] MEDS: ENOXAPARIN SODIUM INJ 40 MG/0.4 ML DISP.SYRIN SUBCUT SCH (09:57)
[2018-05-17] MEDS: LAMOTRIGINE 100 MG TABLET PO SCH (09:57)
[2018-05-17] MEDS ORDERED: INSULIN, REGULAR 100 UNIT/100 ML NORMAL SALINE IV PRN ×2 (10:10)
--- NOTE | 2018-05-17 12:24 | PDOC PROGRESS REPORT ---
Subjective Progress Note for:: 05/17/18 Subjective:: JAMIL WYLIE is a 22 year old male type 1 diabetic since age 13 who presented to the emergency room with a history of elevated blood sugars for the last week. He states that he has been out of his testing supplies and did not know how much insulin he needed giving himself. His mother indicates that he has been less than totally compliant with his insulin regimen since he began living with his fiance. He also admits that he has not been following his diet very well and he does occasionally miss doses of insulin. He states that he became nauseated and developed vomiting with abdominal cramping/pain, generalized weakness, malaise and severe fatigue over the course of the last week, and on the night of his mission to the emergency room he had began to experience dyspnea which he knows in the past has indicated that he has become very acidotic. He admits numerous previous similar episodes associated with diabetic ketoacidosis. He has not identified any ameliorating factors for his current symptoms and has not identified any aggravating factors outside of missing his insulin doses and not consuming an appropriate diet. At home he is on Lantus 29 units at night and he uses NovoLog on a sliding scale and counts carbs. In the emergency department 2.5 L of IV fluids were given. ABG showed a pH 7.19 , bicarb 12, anion gap 22. He was admitted for DKA with an initial blood sugar more than 600 mg/dL. He was started on insulin drip and IV fluids were continued. 05/17/18: Jamil continues to be very acidotic on this morning's lab work. His ABG still show a pH of 7.14 and his bicarb has not improved. He is being continued on IV insulin in the drip and on intravenous D5 half-normal saline. Because of his relatively poor response to current therapy a bicarbonate drip will be added and we will closely monitor his pH serum bicarb and blood sugar as well as his urine output and vital signs over the next 6-12 hours in the intensive care unit. He is more alert on his examination today than he was on last night's examination by Dr. Medina. He denies abdominal pain and his nausea and vomiting have been well controlled. He no longer feels significantly dyspneic but he remains fatigued and is experiencing malaise and generalized weakness only slightly improved since he presented to the ER. Reason For Visit: DKA Physical Exam Vital Signs: Temp Pulse Resp BP Pulse Ox 98.2 F 99 15 124/78 96 05/16/18 14:00 05/16/18 14:00 05/17/18 10:00 05/17/18 10:00 05/17/18 10:00 Intake & Output 05/16/18 05/17/18 05/18/18 06:59 06:59 06:59 Intake Total 1999 347 Balance 1999 347 General appearance: PRESENT: no acute distress, cooperative, other - Has a sweet odor to his breath consistent with ketosis Head exam: PRESENT: atraumatic, normocephalic Eye exam: PRESENT: conjunctiva pink. ABSENT: conjunctival injection Ear exam: PRESENT: normal external ear exam. ABSENT: drainage Mouth exam: PRESENT: moist, neck supple, tongue midline Neck exam: PRESENT: full ROM. ABSENT: JVD, meningismus, thyromegaly, tracheal deviation Respiratory exam: PRESENT: clear to auscultation mook, symmetrical, unlabored Cardiovascular exam: PRESENT: RRR. ABSENT: bradycardia, clicks, diastolic murmur, gallop, rubs, systolic murmur, tachycardia Pulses: PRESENT: normal radial pulses, normal dorsalis pedis pul Vascular exam: PRESENT: normal capillary refill. ABSENT: pallor GI/Abdominal exam: PRESENT: normal bowel sounds, soft. ABSENT: tenderness Rectal exam: PRESENT: deferred - [id number] Extremities exam: ABSENT: joint swelling, pedal edema Musculoskeletal exam: PRESENT: full ROM, normal inspection Neurological exam: PRESENT: alert, awake, oriented to person, oriented to place , oriented to time, oriented to situation, CN II-XII grossly intact. ABSENT: motor sensory deficit Psychiatric exam: PRESENT: appropriate affect, normal mood Skin exam: ABSENT: jaundice, rash, urticaria Results Laboratory Results: 05/17/18 04:26 05/17/18 04:26 05/16/18 05/16/18 05/16/18 20:00 22:40 23:59 WBC RBC Hgb Hct MCV MCH MCHC RDW Plt Count Seg Neutrophils % Lymphocytes % Monocytes % Eosinophils % Basophils % Absolute Neutrophils Absolute Lymphocytes Absolute Monocytes Absolute Eosinophils Absolute Basophils Carbonic Acid HCO3/H2CO3 Ratio ABG pH ABG pCO2 ABG pO2 ABG HCO3 ABG O2 Saturation ABG Base Excess FiO2 Sodium 138.7 140.6 Potassium 5.0 4.6 Chloride 108 H 109 H Carbon Dioxide 10 L* 13 L Anion Gap 21 H 19 BUN 14 12 Creatinine 0.73 0.65 Est GFR ( Amer) > 60 > 60 Est GFR (Non-Af Amer) > 60 > 60 Glucose 385 H 200 H Calcium 8.9 8.7 Magnesium Urine Color STRAW Urine Appearance CLEAR Urine pH 5.0 Ur Specific [place] 1.022 Urine Protein NEGATIVE Urine Glucose (UA) >=500 H Urine Ketones 80 H Urine Blood NEGATIVE Urine Nitrite NEGATIVE Ur Leukocyte Esterase NEGATIVE Urine WBC (Auto) 0 05/17/18 05/17/18 05/17/18 04:26 04:26 04:26 WBC 14.9 H RBC 4.36 Hgb 13.8 D Hct 41.9 MCV 96 MCH 31.7 MCHC 33.0 RDW 13.1 Plt Count 237 Seg Neutrophils % 75.2 Lymphocytes % 16.8 Monocytes % 7.6 Eosinophils % 0.3 Basophils % 0.1 Absolute Neutrophils 11.2 H Absolute Lymphocytes 2.5 Absolute Monocytes 1.1 Absolute Eosinophils 0.1 Absolute Basophils 0.0 Carbonic Acid HCO3/H2CO3 Ratio ABG pH ABG pCO2 ABG pO2 ABG HCO3 ABG O2 Saturation ABG Base Excess FiO2 Sodium 138.7 Cancelled Potassium 4.3 Cancelled Chloride 109 H Cancelled Carbon Dioxide 13 L Cancelled Anion Gap 17 Cancelled BUN 11 Cancelled Creatinine 0.61 Cancelled Est GFR ( Amer) > 60 Cancelled Est GFR (Non-Af Amer) > 60 Cancelled Glucose 187 H Cancelled Calcium 8.4 Cancelled Magnesium 1.5 L Urine Color Urine Appearance Urine pH Ur Specific [place] Urine Protein Urine Glucose (UA) Urine Ketones Urine Blood Urine Nitrite Ur Leukocyte Esterase Urine WBC (Auto) 05/17/18 08:48 WBC RBC Hgb Hct MCV MCH MCHC RDW Plt Count Seg Neutrophils % Lymphocytes % Monocytes % Eosinophils % Basophils % Absolute Neutrophils Absolute Lymphocytes Absolute Monocytes Absolute Eosinophils Absolute Basophils Carbonic Acid 0.78 L HCO3/H2CO3 Ratio 11:1 ABG pH 7.14 L* ABG pCO2 26.0 L ABG pO2 109.9 H ABG HCO3 8.6 L ABG O2 Saturation 96.6 ABG Base Excess -18.8 FiO2 ROOM AIR Sodium Potassium Chloride Carbon Dioxide Anion Gap BUN Creatinine Est GFR ( Amer) Est GFR (Non-Af Amer) Glucose Calcium Magnesium Urine Color Urine Appearance Urine pH Ur Specific [place] Urine Protein Urine Glucose (UA) Urine Ketones Urine Blood Urine Nitrite Ur Leukocyte Esterase Urine WBC (Auto) Impressions: Chest X-Ray 05/16/18 00:00 IMPRESSION: No acute abnormality is identified. Assessment & Plan - Diagnosis (1) Diabetic ketoacidosis Qualifiers: Diabetes mellitus type: type 1 Diabetes mellitus complication detail: without coma Qualified Code(s): E10.10 - Type 1 diabetes mellitus with ketoacidosis without coma Is this a current diagnosis for this admission?: Yes Plan: Continue IV fluids and insulin drip. Add bicarbonate drip and monitor closely. Patient will be moved to the ICU when he leaves the ER. (2) Hyperkalemia Is this a current diagnosis for this admission?: Yes Plan: Patient's hyperkalemia is rapidly resolving with rehydration and reduction of his blood sugar. We will follow his potassium on regular daily labs to assure normal levels. (3) Leukocytosis Qualifiers: Leukocytosis type: unspecified Qualified Code(s): D72.829 - Elevated white blood cell count, unspecified Is this a current diagnosis for this admission?: Yes Plan: I would expect leukocytosis to resolve as his diabetic ketoacidosis is treated would not be unusual for him to have an acute rise in his white blood cells which would then gradually returned to normal and will be monitored by daily lab work or more frequent blood counts as needed. - Time Time Spent with patient: 35 or more minutes Medications reviewed and adjusted accordingly: Yes Anticipated discharge: Home Within: within 72 hours
[2018-05-17 13:00] LABS: VENOUS BLOOD BASE EXCESS -6.8 mmol/L; VENOUS BLOOD HCO3 18.4 mmol/L (20-32); VENOUS BLOOD PCO2 36.2 mmHg (35-63); VENOUS BLOOD PH 7.32 (7.30-7.42)
[2018-05-17] MEDS: POTASSI CL 20 MEQ/D5-1/2NS 1L 1000 ML IV PRN (14:41)
[2018-05-17] MEDS ORDERED: OLANZAPINE 5 MG TABLET PO SCH (18:00)
[2018-05-17 19:41] LABS: ANION GAP 11 (5-19); BLOOD UREA NITROGEN 11 mg/dL (7-20); CARBON DIOXIDE 21 mmol/L (22-30); CHLORIDE 108 mmol/L (98-107); GLUCOSE 75 mg/dL (75-110); POTASSIUM 3.6 mmol/L (3.6-5.0); SODIUM 140.1 mmol/L (137-145)
[2018-05-17] MEDS ORDERED: INSULIN LISPRO 100 UNIT/ML 3 ML VIAL SUBCUT PRN ×2 (20:27→20:29)
[2018-05-17] MEDS ORDERED: DEXTROSE 40% GEL 15 GM TUBE PO PRN (20:29)
[2018-05-17] MEDS ORDERED: DEXTROSE 50%-WATER SYRINGE 12.5 GM/25 ML DOSE IV PRN (20:29)
[2018-05-17] MEDS ORDERED: DEXTROSE 40% GEL 15 GM TUBE X 2 PO PRN (20:29)
[2018-05-17] MEDS ORDERED: DEXTROSE 50%-WATER SYRINGE 25 GM/50 ML DOSE IV PRN (20:29)
[2018-05-17] MEDS ORDERED: GLUCAGON,HUMAN RECOMB 1 MG INJ IM PRN (20:29)
[2018-05-17] MEDS ORDERED: INSULIN GLARGINE,HUM.REC.ANLOG 1,000 UNIT/10 ML UNIT SUBCUT ONE (21:00)
[2018-05-17] MEDS: MAGNESIUM SULFATE 1 GM/D5W 100 ML IV SCH ×2 (21:14→22:29)
[2018-05-17] MEDS ORDERED: INSULIN GLARGINE,HUM.REC.ANLOG 300 UNIT/3 ML INSULN.PEN SUBCUT SCH ×2 (22:00)
[2018-05-18] MEDS: POTASSI CL 20 MEQ/D5-1/2NS 1L 1000 ML IV PRN (00:48)
[2018-05-18 01:10] LABS: ANION GAP 10 (5-19); BLOOD UREA NITROGEN 8 mg/dL (7-20); CALCIUM 8.8 mg/dL (8.4-10.2); CARBON DIOXIDE 21 mmol/L (22-30); CHLORIDE 108 mmol/L (98-107); GLUCOSE 235 mg/dL (75-110); POTASSIUM 3.8 mmol/L (3.6-5.0); SODIUM 138.7 mmol/L (137-145)
[2018-05-18 03:36] LABS: ANION GAP 8 (5-19); BLOOD UREA NITROGEN 8 mg/dL (7-20); CALCIUM 8.7 mg/dL (8.4-10.2); CARBON DIOXIDE 22 mmol/L (22-30); CHLORIDE 109 mmol/L (98-107); GLUCOSE 213 mg/dL (75-110); POTASSIUM 3.9 mmol/L (3.6-5.0); SODIUM 139.4 mmol/L (137-145)
[2018-05-18] MEDS: METOCLOPRAMIDE HCL INJ/PF 10 MG/2 ML SDV IV SCH ×3 (06:47→15:17)
[2018-05-18 07:00] LABS: ANION GAP 6 (5-19); BLOOD UREA NITROGEN 7 mg/dL (7-20); CALCIUM 8.8 mg/dL (8.4-10.2); CARBON DIOXIDE 24 mmol/L (22-30); CHLORIDE 108 mmol/L (98-107); GLUCOSE 201 mg/dL (75-110); POTASSIUM 3.9 mmol/L (3.6-5.0); SODIUM 138.4 mmol/L (137-145)
[2018-05-18] MEDS: INSULIN LISPRO 100 UNIT/ML 3 ML VIAL SUBCUT SCH ×2 (07:57→12:41)
[2018-05-18] MEDS: LAMOTRIGINE 100 MG TABLET PO SCH (10:23)
[2018-05-18] MEDS: ENOXAPARIN SODIUM INJ 40 MG/0.4 ML DISP.SYRIN SUBCUT SCH (10:24)
[2018-05-18 10:25] LABS: HEMATOCRIT 40.2 % (37.9-51.0); MEAN CORPUSCULAR HEMOGLOBIN 32.6 pg (27.0-33.4); MEAN CORPUSCULAR HGB CONC 34.9 g/dL (32.0-36.0); MEAN CORPUSCULAR VOLUME 93 fl (80-97); PLATELET COUNT 207 10^3/uL (150-450); RED BLOOD COUNT 4.31 10^6/uL (4.35-5.55); RED CELL DISTRIBUTION WIDTH 13.2 % (11.5-14.0); WHITE BLOOD COUNT 7.7 10^3/uL (4.0-10.5)
[2018-05-18 10:45] LABS: BLOOD UREA NITROGEN 6 mg/dL (7-20); CALCIUM 8.9 mg/dL (8.4-10.2); GLUCOSE 97 mg/dL (75-110); POTASSIUM 3.5 mmol/L (3.6-5.0)
[2018-05-18 10:54] LABS: ANION GAP 5 (5-19); CARBON DIOXIDE 27 mmol/L (22-30); CHLORIDE 108 mmol/L (98-107); SODIUM 140.4 mmol/L (137-145)
--- NOTE | 2018-05-18 15:18 | PDOC DISCHARGE SUMMARY ---
General - Admit/Disc Date/PCP Admission Date/Primary Care Provider: 05/16/18 19:57 STANLEY SZYMANSKI Discharge Date: 05/18/18 - Discharge Diagnosis (1) Diabetic ketoacidosis Is this a current diagnosis for this admission?: Yes Summary: Jamil was admitted with a significant diabetic ketoacidosis with an initial pH of 7.19 that actually dropped to 7.14 with therapy. He required a bicarbonate continuous infusion and an insulin drip in order to recover and resolve his acidosis. He was also treated with high volumes of IV fluid. He responded quite well and over the course of the first 12-14 hours of this visit he normalized his sugar and his acid base balance. Is done well subsequently is able to tolerate a diet and will be discharged home in improved and stable condition. (2) Hyperkalemia Is this a current diagnosis for this admission?: Yes Summary: Soni hyperkalemia resolved with the use of IV fluid and insulin to treat his diabetic ketoacidosis. (3) Leukocytosis Is this a current diagnosis for this admission?: Yes Summary: His leukocytosis resolved with hydration and resolution of his severe acidosis. - Additional Information Resuscitation Status: Full Code Discharge Diet: Diabetic - Consistent carbohydrate no concentrated sweets diet Discharge Activity: Activity As Tolerated Home Medications: Ergocalciferol (Vitamin D2) [Drisdol 50,000 unit (1.25MG) Capsule] 50,000 unit PO ANDERSON 05/16/18 Insulin Lispro [Humalog Kwikpen U-100] 0 units SQ .PERSLIDINGSCALE 05/16/18 Lamotrigine [Lamictal] 200 mg PO DAILY 05/16/18 Olanzapine [Zyprexa] 20 mg PO QPM 05/16/18 Insulin Glargine,Hum.rec.anlog [Lantus Solostar] 36 units SQ QHS #0 05/18/18 History of Present Illness Patient complains of: Generalized malaise with elevated blood sugars History of Present Illness: JAMIL WYLIE is a 22 year old male type 1 diabetic since age 13 who presented to the emergency room with a history of elevated blood sugars for the last week. He states that he has been out of his testing supplies and did not know how much insulin he needed to be giving himself. His mother indicates that he has been less than totally compliant with his insulin regimen since he began living with his fiance. He also admits that he has not been following his diet very well and he does occasionally miss doses of insulin. He states that he became nauseated and developed vomiting with abdominal cramping/pain, generalized weakness, malaise and severe fatigue over the course of the last week, and on the night of his mission to the emergency room he had began to experience dyspnea which he knows in the past has indicated that he has become very acidotic. He admits numerous previous similar episodes associated with diabetic ketoacidosis. He has not identified any ameliorating factors for his current symptoms and has not identified any aggravating factors outside of missing his insulin doses and not consuming an appropriate diet. At home he is on Lantus 29 units at night and he uses NovoLog on a sliding scale and counts carbs. Hospital Course Hospital Course: In the emergency department 2.5 L of IV fluids were given. ABG showed a pH 7.19 , bicarb 12, anion gap 22. He was admitted for DKA with an initial blood sugar more than 600 mg/dL. He was started on insulin drip and IV fluids were continued. The following morning his ABG still showed a pH of 7.14 and his bicarb had not improved. He was continued on IV insulin in the drip and on intravenous D5 half-normal saline. Because of his relatively poor response to initial therapy a bicarbonate drip was added. Within a few hours he was more alert and felt as though he were back to his baseline. He continued to do well over the remainder of the evening and because of his excellent progress was felt he was ready to be discharged to home on 05/18/2018. He will be discharged improved and stable condition. Physical Exam Vital Signs: Temp Pulse Resp BP Pulse Ox 98.2 F 73 13 125/61 99 05/18/18 12:12 05/18/18 12:12 05/18/18 12:12 05/18/18 12:12 05/18/18 12:12 Intake & Output 05/17/18 05/18/18 05/19/18 06:59 06:59 06:59 Intake Total 1999 2861 300 Output Total 900 Balance 1999 1960 300 Weight 72 kg General appearance: PRESENT: no acute distress, cooperative Head exam: PRESENT: atraumatic, normocephalic Eye exam: ABSENT: periorbital swelling, scleral icterus Ear exam: PRESENT: normal external ear exam. ABSENT: drainage Mouth exam: PRESENT: moist, tongue midline Neck exam: ABSENT: thyromegaly, tracheal deviation Respiratory exam: PRESENT: clear to auscultation mook, symmetrical, unlabored Cardiovascular exam: PRESENT: RRR. ABSENT: diastolic murmur, systolic murmur Vascular exam: PRESENT: normal capillary refill. ABSENT: pallor GI/Abdominal exam: PRESENT: normal bowel sounds, soft Rectal exam: PRESENT: deferred Extremities exam: ABSENT: joint swelling, pedal edema, tenderness Musculoskeletal exam: PRESENT: full ROM, normal inspection Neurological exam: PRESENT: alert, awake, oriented to person, oriented to place , oriented to time, oriented to situation, CN II-XII grossly intact. ABSENT: motor sensory deficit Psychiatric exam: PRESENT: appropriate affect, normal mood Skin exam: ABSENT: jaundice, rash, urticaria Results Laboratory Results: 05/18/18 10:03 05/18/18 10:03 05/17/18 05/18/18 05/18/18 19:20 00:15 00:15 WBC RBC Hgb Hct MCV MCH MCHC RDW Plt Count Sodium 140.1 138.7 Potassium 3.6 3.8 Chloride 108 H 108 H Carbon Dioxide 21 L 21 L Anion Gap 11 10 BUN 11 8 Creatinine 0.65 0.53 Est GFR ( Amer) > 60 > 60 Est GFR (Non-Af Amer) > 60 > 60 Glucose 75 235 H Calcium 9.0 8.8 Magnesium 2.4 H 05/18/18 05/18/18 05/18/18 02:55 06:04 10:03 WBC 7.7 RBC 4.31 L Hgb 14.0 Hct 40.2 MCV 93 MCH 32.6 MCHC 34.9 RDW 13.2 Plt Count 207 Sodium 139.4 138.4 Potassium 3.9 3.9 Chloride 109 H 108 H Carbon Dioxide 22 24 Anion Gap 8 6 BUN 8 7 Creatinine 0.55 0.51 L Est GFR ( Amer) > 60 > 60 Est GFR (Non-Af Amer) > 60 > 60 Glucose 213 H 201 H Calcium 8.7 8.8 Magnesium 05/18/18 10:03 WBC RBC Hgb Hct MCV MCH MCHC RDW Plt Count Sodium 140.4 Potassium 3.5 L Chloride 108 H Carbon Dioxide 27 Anion Gap 5 BUN 6 L Creatinine 0.55 Est GFR ( Amer) > 60 Est GFR (Non-Af Amer) > 60 Glucose 97 Calcium 8.9 Magnesium 1.9 Impressions: Chest X-Ray 05/16/18 00:00 IMPRESSION: No acute abnormality is identified. Qualifiers - * PATIENT BEING DISCHARGED WITH ANY OF THE FOLLOWING DIAGNOSIS: No Plan Discharge Plan: Discharged home in improved and stable condition Time Spent: Greater than 30 Minutes
[2018-05-18 15:39] VITALS: BP 125/75
[2018-05-20] MEDS ORDERED: ERGOCALCIFEROL (VITAMIN D2) 50000 UNIT (1.25 MG) CAPSULE PO SCH (10:00)
== END 2018-05-18 16:00 | disposition home or self-care (01) | DRG 639 ==
LOC: ER 13:53 → EH 19:57 → 3W 05-17 18:57
PROVIDERS: ADMIT Internal Medicine; ATTEND Internal Medicine
DX: E10.10 Type 1 diabetes mellitus with ketoacidosis without coma (principal); E87.5 Hyperkalemia; T38.3X6A Underdosing of insulin and oral hypoglycemic [antidiabetic] drugs, initial encounter; Z91.138 Patient's unintentional underdosing of medication regimen for other reason; Z79.4 Long term (current) use of insulin; K21.9 Gastro-esophageal reflux disease without esophagitis; D72.829 Elevated white blood cell count, unspecified; Z82.49 Family history of ischemic heart disease and other diseases of the circulatory system
CPT/HCPCS: 36415; 71045; 80048; 80053; 80307; 81001; 82010; 82803; 82962; 83036; 83735; 85025; 85027; 96361; 96374; 99285; J1650; J1815; J2405; J2550; J2765; J3475; J3480; J3490; J7060; S0119; S0164

== ENCOUNTER 2018-08-25 18:14 | Inpatient (IN) | payer OTHER ==
[2018-08-25] MEDS ORDERED: NORMAL SALINE 1000 ML 1,000 ML IV ONE (18:24)
[2018-08-25 19:05] LABS: VENOUS BLOOD BASE EXCESS -18.5 mmol/L; VENOUS BLOOD HCO3 9.8 mmol/L (20-32); VENOUS BLOOD PCO2 31.7 mmHg (35-63)
[2018-08-25 19:06] LABS: HEMATOCRIT 48.8 % (37.9-51.0); HEMOGLOBIN 16.3 g/dL (13.5-17.0); MEAN CORPUSCULAR HEMOGLOBIN 32.5 pg (27.0-33.4); MEAN CORPUSCULAR HGB CONC 33.4 g/dL (32.0-36.0); MEAN CORPUSCULAR VOLUME 97 fl (80-97); PLATELET COUNT 258 10^3/uL (150-450); RED BLOOD COUNT 5.01 10^6/uL (4.35-5.55); RED CELL DISTRIBUTION WIDTH 13.4 % (11.5-14.0); WHITE BLOOD COUNT 17.1 10^3/uL (4.0-10.5)
[2018-08-25 19:09] LABS: VENOUS BLOOD PH 7.11 (7.30-7.42)
[2018-08-25 19:18] LABS: ALANINE AMINOTRANSFERASE 26 U/L (21-72); ALBUMIN 4.2 g/dL (3.5-5.0); ALKALINE PHOSPHATASE 108 U/L (38-126); ASPARTATE AMINO TRANSFERASE 19 U/L (17-59); BILIRUBIN,DIRECT 0.4 mg/dL (0.0-0.4); BILIRUBIN,TOTAL 0.9 mg/dL (0.2-1.3); BLOOD UREA NITROGEN 17 mg/dL (7-20); CALCIUM 8.4 mg/dL (8.4-10.2); POTASSIUM 5.6 mmol/L (3.6-5.0); TOTAL PROTEIN 6.7 g/dL (6.3-8.2)
[2018-08-25 19:21] LABS: APPEARANCE,URINE CLEAR; BILIRUBIN,URINE NEGATIVE (NEGATIVE); COLOR,URINE STRAW; GLUCOSE, URINE >=500 mg/dL (NEGATIVE); KETONES,URINE 80 mg/dL (NEGATIVE); LEUKOCYTE ESTERASE,URINE NEGATIVE (NEGATIVE); NITRITE,URINE NEGATIVE (NEGATIVE); PROTEIN,URINE 30 mg/dL (NEGATIVE); URINE SPECIFIC GRAVITY 1.017; UROBILINOGEN,URINE NEGATIVE mg/dL (<2.0)
[2018-08-25 19:23] LABS: CHLORIDE 102 mmol/L (98-107); SODIUM 136.2 mmol/L (137-145)
[2018-08-25 19:25] LABS: ABSOLUTE LYMPHOCYTES# (MANUAL) 0.7 10^3/uL (0.5-4.7); ABSOLUTE MONOCYTES # (MANUAL) 0.7 10^3/uL (0.1-1.4); ABSOLUTE NEUTROPHILS# (MANUAL) 15.7 10^3/uL (1.7-8.2); BASOPHILS % (MANUAL) 0 % (0-2); EOSINOPHILS % (MANUAL) 0 % (0-6); LYMPHOCYTES % (MANUAL) 4 % (13-45); MONOCYTES % (MANUAL) 4 % (3-13); SEGMENTED NEUTROPHILS % (MAN) 92 % (42-78); TOTAL CELLS COUNTED 100
[2018-08-25] MEDS ORDERED: RINGERS SOLUTION,LACTATED 1,000 ML IV ONE ×3 (19:25→20:31)
[2018-08-25] MEDS ORDERED: ONDANSETRON HCL INJ/PF 4 MG/2 ML SDV IV ONE (19:25)
[2018-08-25 19:26] LABS: ANION GAP 25 (5-19); PLATELET CLUMPS PRESENT; PLATELET COMMENT ADEQUATE
[2018-08-25] MEDS ORDERED: INSULIN REG, HUMAN 100 UNIT/ML 3 ML VIAL (PYX) IV ONE (19:48)
--- NOTE | 2018-08-25 19:49 | ER Document Report ---
ED General - General Chief Complaint: Nausea/Vomiting Stated Complaint: VOMITING Time Seen by Provider: 08/25/18 19:24 Cannot obtain history due to: Altered mental status Notes: Patient is a 23-year-old male with a past medical history of insulin dependent diabetes and frequent hospitalizations for diabetic ketoacidosis who presents with 2 days of nausea, vomiting and feeling poorly. Patient's blood sugars have apparently been greater than 400 over that period of time but he has refused to come to the hospital until family forced him to do so today. Family states that this is exactly how the patient has presented in the past when he has entered into diabetic ketoacidosis. History is otherwise limited secondary to the patient's lethargy at time of initial assessment TRAVEL OUTSIDE OF THE [place] IN LAST 30 DAYS: No - Related Data Allergies/Adverse Reactions: No Known Allergies Allergy (Verified 05/16/18 13:54) Past Medical History - General Information source: Patient - Social History Smoking Status: Former Smoker Chew tobacco use (# tins/day): No Frequency of alcohol use: None Drug Abuse: None Lives with: Family Family History: Arthritis, CAD, COPD, CVA, DM, Hyperlipidemia, Hypertension, Thyroid Disfunction Patient has suicidal ideation: No Patient has homicidal ideation: No - Past Medical History Cardiac Medical History: Denies: Hx Congestive Heart Failure, Hx Coronary Artery Disease, Hx Heart Attack, Hx Hypertension Pulmonary Medical History: Denies: Hx Asthma, Hx Bronchitis, Hx COPD, Hx Pneumonia, Hx Tuberculosis Neurological Medical History: Reports: Hx Migraine. Denies: Hx Cerebrovascular Accident, Hx Seizures Endocrine Medical History: Reports: Hx Diabetes Mellitus Type 1 Renal/ Medical History: Denies: Hx Benign Prostatic Hyperplasia, Hx End Stage Renal Disease, Hx Kidney Stones, Hx Peritoneal Dialysis GI Medical History: Reports: Hx Gastroesophageal Reflux Disease. Denies: Hx Cirrhosis, Hx Ulcer Musculoskeletal Medical History: Denies Hx Arthritis, Denies Hx Multiple Sclerosis Psychiatric Medical History: Reports: Hx Bipolar Disorder, Hx Depression Denies: Hx Schizophrenia Past Surgical History: Reports: Hx Myringotomy, Hx Orthopedic Surgery - right hand, Other - ear tubes when was 5 months old - Immunizations Immunizations up to date: Yes Hx Diphtheria, Pertussis, Tetanus Vaccination: Yes - 2017 Review of Systems - Review of Systems Notes: Constitutional: Negative for fever. Positive for confusion HENT: Negative for sore throat. Eyes: Negative for visual changes. Cardiovascular: Negative for chest pain. Respiratory: Negative for shortness of breath. Gastrointestinal: Positive for nausea and vomiting Genitourinary: Negative for dysuria. Musculoskeletal: Negative for back pain. Skin: Negative for rash. Neurological: Negative for headaches, weakness or numbness. 10 point ROS negative except as marked above and in HPI. Physical Exam - Vital signs Vitals: Resp Pulse Ox 21 H 99 08/25/18 19:45 08/25/18 19:45 Interpretation: Tachycardic, Tachypneic Notes: PHYSICAL EXAMINATION: GENERAL: Extremely ill in appearance, lethargic HEAD: Atraumatic, normocephalic. EYES: Pupils equal round and reactive to light, extraocular movements intact, sclera anicteric, conjunctiva are normal. ENT: nares patent, oropharynx clear without exudates. Extremely dry mucous membranes. NECK: Normal range of motion, supple without lymphadenopathy LUNGS: Tachypnea, Kussmaul's respirations present HEART: Regular tachycardia without murmurs ABDOMEN: Soft, nontender, normoactive bowel sounds. No guarding, no rebound. No masses appreciated. EXTREMITIES: Normal range of motion, no pitting or edema. No cyanosis. NEUROLOGICAL: No focal neurological deficits. Moves all extremities spontaneously and on command. PSYCH: Lethargic, responds to questions appropriately but does have delayed responses SKIN: Warm, Dry, poor skin turgor Course - Re-evaluation Re-evalutation: 08/25/18 19:30 Documentation is delayed as I been at this patient's bedside continuously since I encountered him. The patient is lethargic although does respond to questions after some delay. He is noted to be tachycardic in to the 130s on time of initial assessment. He is extraordinarily dehydrated, completely dry oral mucosa. Clinical history is most consistent with diabetic ketoacidosis. Family does report that his blood sugars have been higher than 400 for at least the past 2 days but the patient has continued to take his insulin. Initial laborat ories that were sent from triage do reveal a pH of 7.1 consistent with acute diabetic ketoacidosis. Patient is receiving aggressive IV rehydration, has received 1 L of normal saline and will now receive 2 L of lactated Ringer's. 2 additional points of IV access will be established. Patient has been moved out of the hallway bed where he was initially placed into a formal room and placed on telemetry. The patient will be started on insulin infusion as his initial potassium is 5.6. Insulin infusion has been started 0.014 units/kg/h. Will continue to reassess the patient at regular intervals as he is critically ill, high risk for airway compromise due to becoming obtunded, hemodynamic compromise secondary to acidosis and hypovolemia. 08/25/18 20:11 Patient's heart rate has down trended to 120 currently. He remains lethargic but continues to answer questions. Not obtunded. Insulin infusion is being mixed. He has 3 points of IV access currently. 2 L of LR hanging wide open. Will continue to reassess at regular intervals. 08/25/18 21:13 Patient continues to clinically improve, heart rate is down to 118. Patient is now much more awake. Repeat Accu-Chek and basic metabolic panel pending. I discussed this case with the inpatient hospitalist and requested an ICU admission and he is agreed. I have updated the patient and family who are understanding of care plan. - Vital Signs Vital signs: Temp Pulse Resp BP Pulse Ox 98.2 F 20 116/62 98 08/25/18 19:48 08/26/18 02:46 08/26/18 02:32 08/26/18 02:46 - Laboratory Result Diagrams: 08/25/18 18:47 08/26/18 02:30 Laboratory results interpreted by me: 08/25/18 08/25/18 08/25/18 18:47 18:47 18:47 WBC 17.1 H Seg Neuts % (Manual) 92 H Lymphocytes % (Manual) 4 L Abs Neuts (Manual) 15.7 H VBG pH 7.11 L* VBG pCO2 31.7 L VBG HCO3 9.8 L Sodium 136.2 L Potassium 5.6 H Carbon Dioxide 9 L* Anion Gap 25 H Glucose 424 H* POC Glucose Lipase Urine Protein Urine Glucose (UA) Urine Ketones 08/25/18 08/25/18 08/25/18 18:47 18:58 19:51 WBC Seg Neuts % (Manual) Lymphocytes % (Manual) Abs Neuts (Manual) VBG pH VBG pCO2 VBG HCO3 Sodium Potassium Carbon Dioxide Anion Gap Glucose POC Glucose 426 H* Lipase < 10.0 L Urine Protein 30 H Urine Glucose (UA) >=500 H Urine Ketones 80 H - EKG Interpretation by Me Additional EKG results interpreted by me: 08/26/18 03:18 Sinus tachycardia, rate 123. No ST elevations or depressions. QTC is 452. Critical Care Note - Critical Care Note Total time excluding time spent on procedures (mins): 45 Comments: Critical care time spent obtaining history from patient or surrogate, discussions with consultants, development of treatment plan with patient or surrogate, evaluation of patient's response to treatment, examination of patient, ordering and performing treatments and interventions, ordering and review of laboratory studies, re-evaluation of patient's condition, ordering and review of radiographic studies and review of old charts Discharge - Discharge Clinical Impression: Hypovolemia Diabetic ketoacidosis Qualifiers: Diabetes mellitus type: type 1 Diabetes mellitus complication detail: without coma Qualified Code(s): E10.10 - Type 1 diabetes mellitus with ketoacidosis without coma Altered mental status Qualifiers: Altered mental status type: disorientation Qualified Code(s): R41.0 - Disorientation, unspecified Condition: Fair Disposition: ADMITTED INPATIENT Admitting Provider: Hospitalist Unit Admitted: ICU
[2018-08-25 19:56] LABS: LIPASE < 10.0 U/L (23-300)
[2018-08-25 20:06] LABS: CARBON DIOXIDE 9 mmol/L (22-30); GLUCOSE 424 mg/dL (75-110)
--- NOTE | 2018-08-25 20:33 | EKG REPORT ---
SEVERITY:- OTHERWISE NORMAL ECG - SINUS TACHYCARDIA : Confirmed by: Marsha Bailey 25-Aug-2018 20:32:36
[2018-08-25] MEDS ORDERED: DEXTROSE 5%-NORMAL SALINE 1,000 ML IV ONE (21:28)
[2018-08-25] MEDS ORDERED: MAGNESIUM HYDROXIDE SUSP 30 ML UDCUP PO PRN (21:56)
[2018-08-25] MEDS ORDERED: DEXTROSE 50%-WATER 25 GM/50 ML DISP.SYRIN IV PRN ×2 (21:56)
[2018-08-25] MEDS ORDERED: NORMAL SALINE 1000 ML 1,000 ML IV PRN (21:56)
[2018-08-25] MEDS ORDERED: DEXTROSE 40% GEL 15 GM TUBE PO PRN ×2 (21:56)
[2018-08-25] MEDS ORDERED: MAG HYDROX/AL HYDROX/SIMETH SUSP 30 ML UDCUP PO PRN (21:56)
[2018-08-25] MEDS ORDERED: GLUCAGON,HUMAN RECOMB 1 MG INJ IM PRN (21:56)
[2018-08-25] MEDS ORDERED: ACETAMINOPHEN 650 MG SUPP.RECT PR PRN (22:04)
[2018-08-25] MEDS ORDERED: ACETAMINOPHEN 325 MG TABLET PO PRN (22:04)
[2018-08-25] MEDS ORDERED: NALBUPHINE HCL INJ 10 MG/1 ML AMPULE IV PRN (22:04)
[2018-08-25 22:41] LABS: BLOOD UREA NITROGEN 17 mg/dL (7-20); CALCIUM 8.8 mg/dL (8.4-10.2); GLUCOSE 279 mg/dL (75-110)
[2018-08-25 22:47] LABS: CARBON DIOXIDE 11 mmol/L (22-30); CHLORIDE 108 mmol/L (98-107); SODIUM 140.8 mmol/L (137-145)
[2018-08-25 22:54] LABS: ANION GAP 22 (5-19)
[2018-08-25 22:58] LABS: POTASSIUM 5.2 mmol/L (3.6-5.0)
[2018-08-25] MEDS: PANTOPRAZOLE SODIUM 40 MG VIAL IV SCH (23:02)
[2018-08-25] MEDS: METOCLOPRAMIDE HCL INJ/PF 10 MG/2 ML SDV IV SCH (23:08)
[2018-08-25] MEDS: HEPARIN SOD (PORCINE) 5,000 UNIT/ML 1 ML SYRINGE SUBCUT SCH (23:29)
[2018-08-25] MEDS: DEXTROSE 5%-WATER 1000 ML 1,000 ML with SODIUM BICARBONATE 150 MEQ IV PRN ×2 (23:30)
--- NOTE | 2018-08-26 01:06 | PDOC H&P ---
History of Present Illness Admission Date/PCP: 08/25/18 21:21 HOLLAND CARMONA MD Patient complains of: decreased responsiveness History of Present Illness: JAMIL WYLIE is a 23 year old male who presented to the emergency room escorted by his family with a 2-day history of nausea, vomiting, elevated blood sugars and progressively worsening lethargy with decreased responsiveness. The patient is arousable but somewhat stuporous at the time my evaluation and the vast majority of the information obtained is provided by his mother. She indicates that his blood sugars have been greater than 400 for the last 2 or 3 days even though he has continued to take his insulin. He was having severe episodic nausea and vomiting that gradually worsened over the last 48 hours as he became less responsive after each episode. He has experienced similar symptoms on n umerous occasions in the past with the development of diabetic ketoacidosis. He has not identified any aggravating or ameliorating factors for his symptoms other than his nausea and vomiting was worsened by attempts at oral intake. In the emergency room he was found to have a blood sugar greater than 400 and a significant ketosis and acidosis on evaluation of his arterial blood gases and urinalysis. He was noted to be significantly hypovolemic and tachycardic and fluid resuscitation was begun in the ER. He will be admitted for further fluid resuscitation as well as an IV insulin infusion and IV bicarbonate infusion with appropriate electrolyte repletion as required. Past Medical History Cardiac Medical History: Denies: Congestive Heart Failure, Coronary Artery Disease, Myocardial Infarction, Hypertension Pulmonary Medical History: Denies: Asthma, Bronchitis, Chronic Obstructive Pulmonary Disease (COPD), Pneumonia, Tuberculosis EENT Medical History: Reports: None Neurological Medical History: Reports: Migraine Denies: Multiple Sclerosis, Seizures Endocrine Medical History: Reports: Diabetes Mellitus Type 1 Denies: Hyperthyroidism, Hypothyroidism, Obesity Renal/ Medical History: Denies: End Stage Renal Disease, Nephrolithiasis Malignancy Medical History: Reports: None GI Medical History: Reports: Gastroesophageal Reflux Disease Denies: Cirrhosis, Hepatitis Musculoskeltal Medical History: Denies: Arthritis, Gout Skin Medical History: Denies: Eczema, Psoriasis Psychiatric Medical History: Reports: Bipolar Disorder, Depression, Substance Abuse, Tobacco Dependency Denies: Alcohol Dependency Traumatic Medical History: Reports: None Hematology: Denies: Anemia, Bleeding Tendencies Infectious Medical History: Reports: None Past Surgical History Past Surgical History: Reports: Orthopedic Surgery - right hand, Other - ear tubes when was 5 months old Social History Information Source: Parent Lives with: Spouse/Significant other Smoking Status: Former Smoker Frequency of Alcohol Use: None Hx Recreational Drug Use: Yes Drugs: Cocaine Hx Prescription Drug Abuse: No - Advance Directive Resuscitation Status: Full Code Surrogate healthcare decision maker:: Mother Family History Family History: Arthritis, CAD, COPD, CVA, DM, Hyperlipidemia, Hypertension, Thy roid Disfunction Parental Family History Reviewed: Yes Children Family History Reviewed: No Sibling(s) Family History Reviewed.: Yes Medication/Allergy Home Medications: Ergocalciferol (Vitamin D2) [Drisdol 50,000 unit (1.25MG) Capsule] 50,000 unit PO ANDERSON 05/16/18 Insulin Lispro [Humalog Kwikpen U-100] 0 units SQ .PERSLIDINGSCALE 05/16/18 Lamotrigine [Lamictal] 200 mg PO DAILY 05/16/18 Olanzapine [Zyprexa] 20 mg PO QPM 05/16/18 Insulin Glargine,Hum.rec.anlog [Lantus Solostar] 36 units SQ QHS #0 05/18/18 Allergies/Adverse Reactions: No Known Allergies Allergy (Verified 05/16/18 13:54) Review of Systems ROS unobtainable: Due to mental status - Patient is arousable but answers only very minimal and simple questions with some inconsistency and confusion noted by his mother. To this end and accurate review of systems is not obtainable. Physical Exam Vital Signs: Temp Pulse Resp BP Pulse Ox 98.2 F 08/25/18 19:48 Intake & Output 08/23/18 08/24/18 08/25/18 23:59 23:59 23:59 Intake Total 4800 Output Total 650 Balance 4150 Weight 77.27 kg General appearance: PRESENT: no acute distress, cooperative, thin, other - Somnolent/stuporous with confusion/mental dullness Head exam: PRESENT: atraumatic, normocephalic Eye exam: PRESENT: conjunctiva pink. ABSENT: scleral icterus Ear exam: PRESENT: normal external ear exam. ABSENT: bleeding, drainage Mouth exam: PRESENT: dry mucosa, neck supple Neck exam: ABSENT: JVD, thyromegaly, tracheal deviation Respiratory exam: PRESENT: clear to auscultation mook, symmetrical, unlabored Cardiovascular exam: PRESENT: RRR, tachycardia. ABSENT: clicks, diastolic murmur, gallop, rubs, systolic murmur Pulses: PRESENT: normal radial pulses, normal dorsalis pedis pul GI/Abdominal exam: PRESENT: normal bowel sounds, soft Rectal exam: PRESENT: deferred Extremities exam: ABSENT: joint swelling, pedal edema Musculoskeletal exam: ABSENT: deformity, dislocation Neurological exam: PRESENT: altered - Somnolent and somewhat stuporous when aroused, other - Mental slowness/confusion Psychiatric exam: PRESENT: flat affect, other - Mental slowness/confusion Skin exam: PRESENT: dry, intact - [id number], warm. ABSENT: jaundice, rash, urticar ia Results Laboratory Results: 08/25/18 18:47 08/25/18 18:47 08/25/18 08/25/18 08/25/18 18:47 18:47 18:47 WBC 17.1 H RBC 5.01 Hgb 16.3 Hct 48.8 MCV 97 MCH 32.5 MCHC 33.4 RDW 13.4 Plt Count 258 Seg Neutrophils % Not Reportable Lymphocytes % Not Reportable Monocytes % Not Reportable Eosinophils % Not Reportable Basophils % Not Reportable Absolute Neutrophils Not Reportable Absolute Lymphocytes Not Reportable Absolute Monocytes Not Reportable Absolute Eosinophils Not Reportable Absolute Basophils Not Reportable VBG pH 7.11 L* VBG pCO2 31.7 L VBG HCO3 9.8 L VBG Base Excess -18.5 Sodium 136.2 L Potassium 5.6 H Chloride 102 Carbon Dioxide 9 L* Anion Gap 25 H BUN 17 Creatinine 0.92 Est GFR ( Amer) > 60 Est GFR (Non-Af Amer) > 60 Glucose 424 H* Calcium 8.4 Total Bilirubin 0.9 AST 19 ALT 26 Alkaline Phosphatase 108 Total Protein 6.7 Albumin 4.2 Lipase Urine Color Urine Appearance Urine pH Ur Specific Lindsay Urine Protein Urine Glucose (UA) Urine Ketones Urine Blood Urine Nitrite Ur Leukocyte Esterase Urine WBC (Auto) Urine RBC (Auto) 08/25/18 08/25/18 18:47 18:58 WBC RBC Hgb Hct MCV MCH MCHC RDW Plt Count Seg Neutrophils % Lymphocytes % Monocytes % Eosinophils % Basophils % Absolute Neutrophils Absolute Lymphocytes Absolute Monocytes Absolute Eosinophils Absolute Basophils VBG pH VBG pCO2 VBG HCO3 VBG Base Excess Sodium Potassium Chloride Carbon Dioxide Anion Gap BUN Creatinine Est GFR ( Amer) Est GFR (Non-Af Amer) Glucose Calcium Total Bilirubin AST ALT Alkaline Phosphatase Total Protein Albumin Lipase < 10.0 L Urine Color STRAW Urine Appearance CLEAR Urine pH 5.0 Ur Specific Lindsay 1.017 Urine Protein 30 H Urine Glucose (UA) >=500 H Urine Ketones 80 H Urine Blood NEGATIVE Urine Nitrite NEGATIVE Ur Leukocyte Esterase NEGATIVE Urine WBC (Auto) 0 Urine RBC (Auto) 1 Assessment & Plan - Diagnosis (1) Acute metabolic encephalopathy Is this a current diagnosis for this admission?: Yes Plan: Patient's acute metabolic encephalopathy is due to his diabetic ketoacidosis. Therapy for the diabetic ketoacidosis is expected to correct the metabolic encephalopathy. Patient will be observed closely for any untoward neurologic changes during his hospital course. (2) Diabetes mellitus type 1 with ketoacidosis Qualifiers: Diabetes mellitus complication detail: without coma Qualified Code(s): E10.10 - Type 1 diabetes mellitus with ketoacidosis without coma Is this a current diagnosis for this admission?: Yes Plan: Patient will be admitted to the intensive care unit and treated aggressively utilizing a bicarbonate drip, insulin drip and vigorous IV fluid rehydration/volume replacement. Sugars and electrolytes will be monitored closely and frequent ABGs will be obtained as required. (3) Hyperkalemia Is this a current diagnosis for this admission?: Yes Plan: Patient's initial state of hyperkalemia is expected to resolve with treatment of his ketoacidosis. His electrolytes will be closely monitored throughout his hospital course. (4) Hypovolemia Is this a current diagnosis for this admission?: Yes Plan: Patient's hypovolemia will be treated with aggressive and vigorous IV fluid resuscitation. - Time Time Spent: 30 to 50 Minutes Critical Time spent with patient: Less than 15 minutes Anticipated discharge: Home - Inpatient Certification Based on my medical assessment, after consideration of the patient's comorbidities, presenting symptoms, or acuity I expect that the services needed warrant INPATIENT care.: Yes I certify that my determination is in accordance with my understanding of Medicare's requirements for reasonable and necessary INPATIENT services [42 CFR 412.3e].: Yes Medical Necessity: Need Close Monitoring Due to Risk of Patient Decompensation, Need For IV Fluids, Risk of Complication if Not Cared For in Hospital
[2018-08-26] MEDS ORDERED: SODIUM BICARBONATE 8.4% INJ 50 MEQ/50 ML DISP.SYRIN ONE ×2 (01:19→04:11)
[2018-08-26] MEDS: DEXTROSE 5%-WATER 1000 ML 1,000 ML with SODIUM BICARBONATE 150 MEQ IV PRN ×4 (01:57→04:22)
[2018-08-26 02:57] LABS: ANION GAP 8 (5-19); BLOOD UREA NITROGEN 12 mg/dL (7-20); CHLORIDE 105 mmol/L (98-107); GLUCOSE 325 mg/dL (75-110); SODIUM 135.4 mmol/L (137-145)
[2018-08-26 03:09] LABS: CARBON DIOXIDE 22 mmol/L (22-30)
[2018-08-26] MEDS ORDERED: INSULIN REG, HUMAN 100 UNIT/ML 3 ML VIAL (PYX) ONE (04:11)
[2018-08-26] MEDS: NORMAL SALINE 100 ML with INSULIN REGULAR, HUMAN 100 UNIT IV PRN ×4 (04:25→13:25)
[2018-08-26] MEDS: HEPARIN SOD (PORCINE) 5,000 UNIT/ML 1 ML SYRINGE SUBCUT SCH ×3 (05:37→21:40)
[2018-08-26] MEDS: ONDANSETRON HCL INJ/PF 4 MG/2 ML SDV IV PRN ×2 (06:15→18:48)
[2018-08-26 07:13] LABS: ARTERIAL BLOOD BASE EXCESS 7.9 mmol/L; ARTERIAL BLOOD H2CO3 1.13 mmol/L (1.05-1.35); ARTERIAL BLOOD HCO3 30.9 mmol/L (20-24); ARTERIAL BLOOD O2 SATURATION 95.2 % (94-98); ARTERIAL BLOOD PCO2 37.7 mmHg (35-45); ARTERIAL BLOOD PH 7.53 (7.35-7.45); ARTERIAL BLOOD PO2 66.8 mmHg (80-100); ARTERIAL BLOOD TOTAL CO2 32.1 mmol/L (23-27)
[2018-08-26 07:15] LABS: ARTERIAL BLOOD FIO2 ROOM AIR
[2018-08-26] MEDS ORDERED: POTASSI CL 20 MEQ/D5-1/2NS 1L 1000 ML IV PRN (08:25)
[2018-08-26 08:53] LABS: ABSOLUTE LYMPHOCYTES (AUTO) 1.9 10^3/uL (0.5-4.7); ABSOLUTE MONOCYTES (AUTO) 1.3 10^3/uL (0.1-1.4); ABSOLUTE NEUT (AUTO) 10.2 10^3/uL (1.7-8.2); BASOPHILS % (AUTO) 0.1 % (0-2); EOSINOPHILS % (AUTO) 0.2 % (0-6); HEMATOCRIT 36.6 % (37.9-51.0); MEAN CORPUSCULAR HEMOGLOBIN 32.1 pg (27.0-33.4); MEAN CORPUSCULAR HGB CONC 35.3 g/dL (32.0-36.0); MONOCYTES % (AUTO) 9.5 % (3-13); PLATELET COUNT 220 10^3/uL (150-450); RED BLOOD COUNT 4.03 10^6/uL (4.35-5.55); RED CELL DISTRIBUTION WIDTH 12.7 % (11.5-14.0); SEGMENTED NEUTROPHILS % (AUTO) 76.2 % (42-78); TOTAL CELLS COUNTED % (AUTO) 100 %; WHITE BLOOD COUNT 13.4 10^3/uL (4.0-10.5)
[2018-08-26 08:58] LABS: HEMOGLOBIN 12.9 g/dL (13.5-17.0); MEAN CORPUSCULAR VOLUME 91 fl (80-97)
[2018-08-26] MEDS: DOCUSATE SODIUM 100 MG CAPSULE PO SCH ×2 (09:07→18:12)
[2018-08-26] MEDS: SUCRALFATE SUSP 1 GM/10 ML UDCUP PO SCH ×5 (09:07→21:40)
[2018-08-26 09:15] LABS: ANION GAP 7 (5-19); BLOOD UREA NITROGEN 9 mg/dL (7-20); CALCIUM 8.2 mg/dL (8.4-10.2); CHLORIDE 99 mmol/L (98-107); GLUCOSE 70 mg/dL (75-110); SODIUM 138.3 mmol/L (137-145)
[2018-08-26] MEDS: PANTOPRAZOLE SODIUM 40 MG VIAL IV SCH ×2 (09:15→21:40)
[2018-08-26] MEDS: METOCLOPRAMIDE HCL INJ/PF 10 MG/2 ML SDV IV SCH ×4 (09:15→21:41)
[2018-08-26 09:20] LABS: POTASSIUM 2.7 mmol/L (3.6-5.0)
[2018-08-26 09:21] LABS: CARBON DIOXIDE 32 mmol/L (22-30)
[2018-08-26] MEDS ORDERED: MAGNESIUM SULFATE INJ 8 MEQ/2 ML IV ONE (11:21)
[2018-08-26] MEDS: POTASSIUM CHLORIDE 10 MEQ CAPSULE.ER PO SCH ×2 (11:24→16:44)
[2018-08-26] MEDS: MAGNESIUM SULFATE 1 GM/D5W 100 ML IV SCH ×2 (12:50→13:57)
[2018-08-26 13:10] LABS: ANION GAP 6 (5-19); BLOOD UREA NITROGEN 7 mg/dL (7-20); CALCIUM 8.3 mg/dL (8.4-10.2); CARBON DIOXIDE 30 mmol/L (22-30); CHLORIDE 101 mmol/L (98-107); GLUCOSE 177 mg/dL (75-110); POTASSIUM 3.1 mmol/L (3.6-5.0); SODIUM 136.8 mmol/L (137-145)
[2018-08-26] MEDS ORDERED: DEXTROSE 40% GEL 15 GM TUBE PO PRN ×2 (15:31)
[2018-08-26] MEDS ORDERED: DEXTROSE 50%-WATER 25 GM/50 ML DISP.SYRIN IV PRN ×2 (15:31)
[2018-08-26] MEDS ORDERED: GLUCAGON,HUMAN RECOMB 1 MG INJ IM PRN (15:31)
--- NOTE | 2018-08-26 15:49 | PDOC PROGRESS REPORT ---
Subjective Subjective:: No adverse events overnight. No new complaints. He says he just feels really tired. He does not have much of an appetite. His urine output's been good. Reason For Visit: ACUTE DIABETIC KETOACIDOSIS Physical Exam Vital Signs: Temp Pulse Resp BP Pulse Ox 97.4 F 87 16 121/67 100 08/26/18 11:39 08/26/18 14:00 08/26/18 11:39 08/26/18 11:39 08/26/18 11:39 Intake & Output 08/25/18 08/26/18 08/27/18 06:59 06:59 06:59 Intake Total 80570 974 Output Total 650 1300 Balance 44171 -326 Weight 78 kg General appearance: PRESENT: no acute distress, cooperative, disheveled Respiratory exam: PRESENT: clear to auscultation mook, symmetrical, unlabored. ABSENT: accessory muscle use, crackles, rhonchi, tachypnea, wheezes Cardiovascular exam: PRESENT: RRR, +S1, +S2 Vascular exam: PRESENT: normal capillary refill GI/Abdominal exam: PRESENT: normal bowel sounds, soft. ABSENT: distended, guarding, rebound, tenderness Extremities exam: ABSENT: clubbing, pedal edema Musculoskeletal exam: PRESENT: normal inspection. ABSENT: deformity Neurological exam: PRESENT: alert, awake, oriented to person, oriented to place, oriented to time, oriented to situation Psychiatric exam: PRESENT: flat affect Skin exam: PRESENT: dry, warm Results Laboratory Results: 08/26/18 08:14 08/26/18 12:40 08/25/18 08/25/18 08/25/18 18:47 18:47 18:47 WBC 17.1 H RBC 5.01 Hgb 16.3 Hct 48.8 MCV 97 MCH 32.5 MCHC 33.4 RDW 13.4 Plt Count 258 Seg Neutrophils % Not Reportable Lymphocytes % Not Reportable Monocytes % Not Reportable Eosinophils % Not Reportable Basophils % Not Reportable Absolute Neutrophils Not Reportable Absolute Lymphocytes Not Reportable Absolute Monocytes Not Reportable Absolute Eosinophils Not Reportable Absolute Basophils Not Reportable Carbonic Acid HCO3/H2CO3 Ratio ABG pH ABG pCO2 ABG pO2 ABG HCO3 ABG O2 Saturation ABG Base Excess VBG pH 7.11 L* VBG pCO2 31.7 L VBG HCO3 9.8 L VBG Base Excess -18.5 FiO2 Sodium 136.2 L Potassium 5.6 H Chloride 102 Carbon Dioxide 9 L* Anion Gap 25 H BUN 17 Creatinine 0.92 Est GFR ( Amer) > 60 Est GFR (Non-Af Amer) > 60 Glucose 424 H* Lactic Acid Calcium 8.4 Magnesium Total Bilirubin 0.9 AST 19 ALT 26 Alkaline Phosphatase 108 Total Protein 6.7 Albumin 4.2 Lipase Urine Color Urine Appearance Urine pH Ur Specific [place] Urine Protein Urine Glucose (UA) Urine Ketones Urine Blood Urine Nitrite Ur Leukocyte Esterase Urine WBC (Auto) Urine RBC (Auto) 08/25/18 08/25/18 08/25/18 18:47 18:58 22:13 WBC RBC Hgb Hct MCV MCH MCHC RDW Plt Count Seg Neutrophils % Lymphocytes % Monocytes % Eosinophils % Basophils % Absolute Neutrophils Absolute Lymphocytes Absolute Monocytes Absolute Eosinophils Absolute Basophils Carbonic Acid HCO3/H2CO3 Ratio ABG pH ABG pCO2 ABG pO2 ABG HCO3 ABG O2 Saturation ABG Base Excess VBG pH VBG pCO2 VBG HCO3 VBG Base Excess FiO2 Sodium Potassium Chloride Carbon Dioxide Anion Gap BUN Creatinine Est GFR ( Amer) Est GFR (Non-Af Amer) Glucose Lactic Acid 1.4 Calcium Magnesium Total Bilirubin AST ALT Alkaline Phosphatase Total Protein Albumin Lipase < 10.0 L Urine Color STRAW Urine Appearance CLEAR Urine pH 5.0 Ur Specific [place] 1.017 Urine Protein 30 H Urine Glucose (UA) >=500 H Urine Ketones 80 H Urine Blood NEGATIVE Urine Nitrite NEGATIVE Ur Leukocyte Esterase NEGATIVE Urine WBC (Auto) 0 Urine RBC (Auto) 1 08/25/18 08/26/18 08/26/18 22:13 02:30 06:22 WBC RBC Hgb Hct MCV MCH MCHC RDW Plt Count Seg Neutrophils % Lymphocytes % Monocytes % Eosinophils % Basophils % Absolute Neutrophils Absolute Lymphocytes Absolute Monocytes Absolute Eosinophils Absolute Basophils Carbonic Acid HCO3/H2CO3 Ratio ABG pH ABG pCO2 ABG pO2 ABG HCO3 ABG O2 Saturation ABG Base Excess VBG pH VBG pCO2 VBG HCO3 VBG Base Excess FiO2 Sodium 140.8 135.4 L Cancelled Potassium 5.2 H 4.0 D Cancelled Chloride 108 H 105 Cancelled Carbon Dioxide 11 L 22 D Cancelled Anion Gap 22 H 8 Cancelled BUN 17 12 Cancelled Creatinine 0.81 0.62 Cancelled Est GFR ( Amer) > 60 > 60 Cancelled Est GFR (Non-Af Amer) > 60 > 60 Cancelled Glucose 279 H 325 H Cancelled Lactic Acid Calcium 8.8 8.0 L Cancelled Magnesium Cancelled Total Bilirubin AST ALT Alkaline Phosphatase Total Protein Albumin Lipase Urine Color Urine Appearance Urine pH Ur Specific [place] Urine Protein Urine Glucose (UA) Urine Ketones Urine Blood Urine Nitrite Ur Leukocyte Esterase Urine WBC (Auto) Urine RBC (Auto) 08/26/18 08/26/18 08/26/18 06:22 06:45 08:14 WBC Cancelled 13.4 H RBC Cancelled 4.03 L Hgb Cancelled 12.9 L D Hct Cancelled 36.6 L MCV Cancelled 91 D MCH Cancelled 32.1 MCHC Cancelled 35.3 RDW Cancelled 12.7 Plt Count Cancelled 220 Seg Neutrophils % Cancelled 76.2 Lymphocytes % Cancelled 14.0 Monocytes % Cancelled 9.5 Eosinophils % Cancelled 0.2 Basophils % Cancelled 0.1 Absolute Neutrophils Cancelled 10.2 H Absolute Lymphocytes Cancelled 1.9 Absolute Monocytes Cancelled 1.3 Absolute Eosinophils Cancelled 0.0 Absolute Basophils Cancelled 0.0 Carbonic Acid 1.13 HCO3/H2CO3 Ratio 27:1 ABG pH 7.53 H ABG pCO2 37.7 ABG pO2 66.8 L ABG HCO3 30.9 H ABG O2 Saturation 95.2 ABG Base Excess 7.9 VBG pH VBG pCO2 VBG HCO3 VBG Base Excess FiO2 ROOM AIR Sodium Potassium Chloride Carbon Dioxide Anion Gap BUN Creatinine Est GFR ( Amer) Est GFR (Non-Af Amer) Glucose Lactic Acid Calcium Magnesium Total Bilirubin AST ALT Alkaline Phosphatase Total Protein Albumin Lipase Urine Color Urine Appearance Urine pH Ur Specific [place] Urine Protein Urine Glucose (UA) Urine Ketones Urine Blood Urine Nitrite Ur Leukocyte Esterase Urine WBC (Auto) Urine RBC (Auto) 08/26/18 08/26/18 08:14 12:40 WBC RBC Hgb Hct MCV MCH MCHC RDW Plt Count Seg Neutrophils % Lymphocytes % Monocytes % Eosinophils % Basophils % Absolute Neutrophils Absolute Lymphocytes Absolute Monocytes Absolute Eosinophils Absolute Basophils Carbonic Acid HCO3/H2CO3 Ratio ABG pH ABG pCO2 ABG pO2 ABG HCO3 ABG O2 Saturation ABG Base Excess VBG pH VBG pCO2 VBG HCO3 VBG Base Excess FiO2 Sodium 138.3 136.8 L Potassium 2.7 L* D 3.1 L Chloride 99 101 Carbon Dioxide 32 H D 30 Anion Gap 7 6 BUN 9 7 Creatinine 0.44 L 0.49 L Est GFR ( Amer) > 60 > 60 Est GFR (Non-Af Amer) > 60 > 60 Glucose 70 L 177 H Lactic Acid Calcium 8.2 L 8.3 L Magnesium 1.4 L Total Bilirubin AST ALT Alkaline Phosphatase Total Protein Albumin Lipase Urine Color Urine Appearance Urine pH Ur Specific [place] Urine Protein Urine Glucose (UA) Urine Ketones Urine Blood Urine Nitrite Ur Leukocyte Esterase Urine WBC (Auto) Urine RBC (Auto) Assessment & Plan - Diagnosis (1) Diabetes mellitus type 1 with ketoacidosis Qualifiers: Diabetes mellitus complication detail: without coma Qualified Code(s): E10.10 - Type 1 diabetes mellitus with ketoacidosis without coma Is this a current diagnosis for this admission?: Yes Plan: His anion gap has closed, his CO2 is greater than 18, and his glucose is below 200. We will take him off the insulin drip now and put him back on his home ins ulin regimen of Lantus with a sliding scale. Continue to monitor and replace electrolytes as needed, we have had to replace his magnesium and his potassium today. - Time Time Spent with patient: 15-24 minutes
[2018-08-26 16:29] LABS: ANION GAP 7 (5-19); BLOOD UREA NITROGEN 6 mg/dL (7-20); CALCIUM 8.4 mg/dL (8.4-10.2); CARBON DIOXIDE 30 mmol/L (22-30); CHLORIDE 104 mmol/L (98-107); GLUCOSE 113 mg/dL (75-110); POTASSIUM 3.2 mmol/L (3.6-5.0); SODIUM 140.6 mmol/L (137-145)
[2018-08-26 20:39] LABS: ANION GAP 10 (5-19); BLOOD UREA NITROGEN 6 mg/dL (7-20); CALCIUM 8.3 mg/dL (8.4-10.2); CARBON DIOXIDE 24 mmol/L (22-30); CHLORIDE 99 mmol/L (98-107)
[2018-08-26 20:55] LABS: POTASSIUM 4.6 mmol/L (3.6-5.0)
[2018-08-26 20:56] LABS: GLUCOSE 407 mg/dL (75-110)
[2018-08-26] MEDS: INSULIN LISPRO 100 UNIT/ML 3 ML VIAL SUBCUT PRN (21:39)
[2018-08-26] MEDS ORDERED: OLANZAPINE 5 MG TABLET PO SCH (22:00)
[2018-08-26] MEDS ORDERED: INSULIN GLARGINE,HUM.REC.ANLOG 300 UNIT/3 ML INSULN.PEN SUBCUT SCH (22:00)
[2018-08-27 01:01] LABS: ANION GAP 5 (5-19); BLOOD UREA NITROGEN 7 mg/dL (7-20); CALCIUM 8.7 mg/dL (8.4-10.2); CARBON DIOXIDE 28 mmol/L (22-30); CHLORIDE 105 mmol/L (98-107); GLUCOSE 231 mg/dL (75-110); SODIUM 137.9 mmol/L (137-145)
[2018-08-27 04:49] LABS: ABSOLUTE EOSINOPHILS # (AUTO) 0.1 10^3/uL (0.0-0.6); ABSOLUTE LYMPHOCYTES (AUTO) 2.4 10^3/uL (0.5-4.7); ABSOLUTE MONOCYTES (AUTO) 0.6 10^3/uL (0.1-1.4); ABSOLUTE NEUT (AUTO) 3.4 10^3/uL (1.7-8.2); BASOPHILS % (AUTO) 0.4 % (0-2); EOSINOPHILS % (AUTO) 1.3 % (0-6); HEMATOCRIT 37.8 % (37.9-51.0); HEMOGLOBIN 13.3 g/dL (13.5-17.0); LYMPHOCYTES % (AUTO) 37.2 % (13-45); MEAN CORPUSCULAR HEMOGLOBIN 32.3 pg (27.0-33.4); MEAN CORPUSCULAR HGB CONC 35.3 g/dL (32.0-36.0); MEAN CORPUSCULAR VOLUME 92 fl (80-97); MONOCYTES % (AUTO) 9.3 % (3-13); PLATELET COUNT 170 10^3/uL (150-450); RED BLOOD COUNT 4.12 10^6/uL (4.35-5.55); RED CELL DISTRIBUTION WIDTH 13.1 % (11.5-14.0); SEGMENTED NEUTROPHILS % (AUTO) 51.8 % (42-78); TOTAL CELLS COUNTED % (AUTO) 100 %; WHITE BLOOD COUNT 6.5 10^3/uL (4.0-10.5)
[2018-08-27 05:19] LABS: ANION GAP 9 (5-19); BLOOD UREA NITROGEN 7 mg/dL (7-20); CALCIUM 8.8 mg/dL (8.4-10.2); CARBON DIOXIDE 25 mmol/L (22-30); CHLORIDE 106 mmol/L (98-107); GLUCOSE 140 mg/dL (75-110); POTASSIUM 3.9 mmol/L (3.6-5.0); SODIUM 139.9 mmol/L (137-145)
[2018-08-27] MEDS: HEPARIN SOD (PORCINE) 5,000 UNIT/ML 1 ML SYRINGE SUBCUT SCH (05:56)
[2018-08-27] MEDS: METOCLOPRAMIDE HCL INJ/PF 10 MG/2 ML SDV IV SCH ×2 (08:56→11:00)
[2018-08-27] MEDS: SUCRALFATE SUSP 1 GM/10 ML UDCUP PO SCH ×2 (08:56→11:00)
[2018-08-27] MEDS ORDERED: (PENDING PHARMACY ID) (Lamotrigine [Lamictal] 200 MG) PO SCH (10:00)
[2018-08-27] MEDS ORDERED: LAMOTRIGINE 100 MG TABLET PO SCH (10:00)
[2018-08-27] MEDS: DOCUSATE SODIUM 100 MG CAPSULE PO SCH (10:50)
[2018-08-27] MEDS: PANTOPRAZOLE SODIUM 40 MG VIAL IV SCH (11:00)
[2018-08-27] MEDS: INSULIN LISPRO 100 UNIT/ML 3 ML VIAL SUBCUT PRN (12:13)
[2018-08-27 12:40] VITALS: BP 111/65
--- NOTE | 2018-08-27 16:11 | PDOC DISCHARGE SUMMARY ---
General - Admit/Disc Date/PCP Admission Date/Primary Care Provider: 08/25/18 21:21 HOLLAND CARMONA MD Discharge Date: 08/27/18 - Discharge Diagnosis (1) Diabetes mellitus type 1 with ketoacidosis Is this a current diagnosis for this admission?: Yes Summary: He was admittedly noncompliant with his diet. He responded well to insulin drip, IV fluids, and electrolyte replenishment. We got him back on his usual insulin regimen and a consistent carb diet his blood sugars were well controlled. - Additional Information Resuscitation Status: Full Code Discharge Diet: Diabetic Discharge Activity: Activity As Tolerated Home Medications: Insulin Glargine,Hum.rec.anlog [Lantus Insulin 100 Unit/mL] 36 units SQ QHS 08/26/18 Insulin Lispro [Humalog Insulin (Lispro) 100 unit/mL] 0 unit SQ .SLIDING SCALE 08/26/18 Lamotrigine [Lamictal] 200 mg PO DAILY 08/26/18 Olanzapine [Zyprexa] 20 mg PO QHS 08/26/18 History of Present Illness History of Present Illness: JAMIL WYLIE is a 23 year old male who presented to the emergency room escorted by his family with a 2-day history of nausea, vomiting, elevated blood sugars and progressively worsening lethargy with decreased responsiveness. The patient is arousable but somewhat stuporous at the time my evaluation and the vast majority of the information obtained is provided by his mother. She indicates that his blood sugars have been greater than 400 for the last 2 or 3 days even though he has continued to take his insulin. He was having severe episodic nausea and vomiting that gradually worsened over the last 48 hours as he became less responsive after each episode. He has experienced similar symptoms on numerous occasions in the past with the development of diabetic ketoacidosis. He has not identified any aggravating or ameliorating factors for his symptoms other than his nausea and vomiting was worsened by attempts at oral intake. In the emergency room he was found to have a blood sugar greater than 400 and a significant ketosis and acidosis on evaluation of his arterial blood gases and urinalysis. He was noted to be significantly hypovolemic and tachycardic and fluid resuscitation was begun in the ER. He will be admitted for further fluid resuscitation as well as an IV insulin infusion and IV bicarbonate infusion with appropriate electrolyte repletion as required. Hospital Course Hospital Course: He responded well to IV fluids and insulin. He required some electrolyte supplementation. Once he got out of DKA, we will transition him to his home insulin regimen and a consistent carbohydrate diet he responded very well. He is admittedly noncompliant at home with his diet, and we discussed the importance of diet and management of diabetes. His labs and examination were reassuring and he was discharged in good condition. Physical Exam Vital Signs: Temp Pulse Resp BP Pulse Ox 97.4 F 77 14 114/66 99 08/27/18 12:20 08/27/18 12:20 08/27/18 12:20 08/27/18 12:20 08/27/18 12:20 Intake & Output 08/26/18 08/27/18 08/28/18 06:59 06:59 06:59 Intake Total 48460 3414 355 Output Total 650 2450 Balance 85025 964 355 Weight 78 kg 77.6 kg General appearance: PRESENT: no acute distress, cooperative, disheveled Respiratory exam: PRESENT: clear to auscultation mook, symmetrical, unlabored. ABSENT: accessory muscle use, rales, rhonchi, tachypnea, wheezes Cardiovascular exam: PRESENT: RRR, +S1, +S2 Vascular exam: PRESENT: normal capillary refill GI/Abdominal exam: PRESENT: normal bowel sounds, soft. ABSENT: distended, guarding, rebound, tenderness Extremities exam: ABSENT: clubbing, pedal edema Musculoskeletal exam: PRESENT: normal inspection. ABSENT: deformity Neurological exam: PRESENT: alert, awake, oriented to person, oriented to place, oriented to time, oriented to situation Psychiatric exam: PRESENT: appropriate affect, normal mood Skin exam: PRESENT: dry, warm Results Laboratory Results: 08/27/18 04:23 08/27/18 04:23 08/26/18 08/26/18 08/27/18 16:04 20:15 00:28 WBC RBC Hgb Hct MCV MCH MCHC RDW Plt Count Seg Neutrophils % Lymphocytes % Monocytes % Eosinophils % Basophils % Absolute Neutrophils Absolute Lymphocytes Absolute Monocytes Absolute Eosinophils Absolute Basophils Sodium 140.6 133.0 L 137.9 Potassium 3.2 L 4.6 D 4.0 Chloride 104 99 105 Carbon Dioxide 30 24 28 Anion Gap 7 10 5 BUN 6 L 6 L 7 Creatinine 0.48 L 0.52 0.52 Est GFR ( Amer) > 60 > 60 > 60 Est GFR (Non-Af Amer) > 60 > 60 > 60 Glucose 113 H 407 H* 231 H Calcium 8.4 8.3 L 8.7 Magnesium 08/27/18 08/27/18 04:23 04:23 WBC 6.5 RBC 4.12 L Hgb 13.3 L Hct 37.8 L MCV 92 MCH 32.3 MCHC 35.3 RDW 13.1 Plt Count 170 Seg Neutrophils % 51.8 Lymphocytes % 37.2 Monocytes % 9.3 Eosinophils % 1.3 Basophils % 0.4 Absolute Neutrophils 3.4 Absolute Lymphocytes 2.4 Absolute Monocytes 0.6 Absolute Eosinophils 0.1 Absolute Basophils 0.0 Sodium 139.9 Potassium 3.9 Chloride 106 Carbon Dioxide 25 Anion Gap 9 BUN 7 Creatinine 0.48 L Est GFR ( Amer) > 60 Est GFR (Non-Af Amer) > 60 Glucose 140 H Calcium 8.8 Magnesium 2.0 Qualifiers - * PATIENT BEING DISCHARGED WITH ANY OF THE FOLLOWING DIAGNOSIS: No
== END 2018-08-27 13:24 | disposition home or self-care (01) | DRG 637 ==
LOC: ER 18:14 → EH 21:21 → 3S 08-26 05:59
PROVIDERS: ADMIT Emergency Medicine; ATTEND Emergency Medicine
DX: E10.10 Type 1 diabetes mellitus with ketoacidosis without coma (principal); G93.41 Metabolic encephalopathy; E86.0 Dehydration; E87.5 Hyperkalemia; E86.1 Hypovolemia
CPT/HCPCS: 36415; 80048; 80053; 81001; 82803; 82962; 83036; 83605; 83690; 83735; 85025; 93005; 93010; 96361; 96374; 99291; J1644; J1815; J2405; J2765; J3475; J3480; J3490; J7030; J7060; J7120; S0164

== ENCOUNTER 2019-01-31 22:08 | Inpatient (IN) | payer SELFPAY ==
--- NOTE | 2019-01-31 22:26 | ER Document Report ---
ED General - General Stated Complaint: HYPERGLYCEMIA Time Seen by Provider: 01/31/19 22:20 Notes: Patient is a 23-year-old male with a history of type 1 diabetes that comes to the emergency department for chief complaint of vomiting and not feeling well for the past 3 days. He states he ran out of his Lantus, he is not checking his blood sugar and he is taking estimates of his insulin otherwise. He denies fever/chills, any particular abdominal pain, difficulty breathing, chest pain. He has been admitted to the hospital for taking in the past. He lives with his grandmother at home who called the remaining medical history includes tobacco use and GERD. He denies alcohol or recreational drugs. TRAVEL OUTSIDE OF THE [place] IN LAST 30 DAYS: No - Related Data Allergies/Adverse Reactions: No Known Allergies Allergy (Verified 05/16/18 13:54) Past Medical History - General Information source: Patient - Social History Smoking Status: Never Smoker Frequency of alcohol use: None Drug Abuse: None Lives with: Family Family History: Arthritis, CAD, COPD, CVA, DM, Hyperlipidemia, Hypertension, Thyroid Disfunction - Past Medical History Cardiac Medical History: Denies: Hx Congestive Heart Failure, Hx Coronary Artery Disease, Hx Heart Attack, Hx Hypertension Pulmonary Medical History: Denies: Hx Asthma, Hx Bronchitis, Hx COPD, Hx Pneumonia, Hx Tuberculosis Neurological Medical History: Reports: Hx Migraine. Denies: Hx Cerebrovascular Accident, Hx Seizures Endocrine Medical History: Reports: Hx Diabetes Mellitus Type 1. Denies: Hx Hyperthyroidism, Hx Hypothyroidism Renal/ Medical History: Denies: Hx Benign Prostatic Hyperplasia, Hx End Stage Renal Disease, Hx Kidney Stones, Hx Peritoneal Dialysis GI Medical History: Reports: Hx Gastroesophageal Reflux Disease. Denies: Hx Cirrhosis, Hx Hepatitis, Hx Ulcer Musculoskeletal Medical History: Denies Hx Arthritis, Denies Hx Gout, Denies Hx Multiple Sclerosis Skin Medical History: Denies Hx Eczema, Denies Hx Psoriasis Psychiatric Medical History: Reports: Hx Bipolar Disorder, Hx Depression Denies: Hx Schizophrenia Infectious Medical History: Denies: Hx Hepatitis Past Surgical History: Reports: Hx Myringotomy, Hx Orthopedic Surgery - right hand, Other - ear tubes when was 5 months old - Immunizations Immunizations up to date: Yes Hx Diphtheria, Pertussis, Tetanus Vaccination: Yes - 2017 Review of Systems - Review of Systems Constitutional: See HPI EENT: No symptoms reported Cardiovascular: No symptoms reported Respiratory: No symptoms reported Gastrointestinal: See HPI Genitourinary: No symptoms reported Male Genitourinary: No symptoms reported Musculoskeletal: No symptoms reported Skin: No symptoms reported Hematologic/Lymphatic: No symptoms reported Neurological/Psychological: No symptoms reported Physical Exam - Vital signs Vitals: Resp BP Pulse Ox 23 H 121/79 98 01/31/19 22:16 01/31/19 22:16 01/31/19 22:16 - Notes Notes: GENERAL: Pale with dark circles under his eyes, awake but unwell appearing HEAD: Normocephalic, atraumatic. EYES: Pupils equal, round, and reactive to light. Extraocular movements intact. ENT: Oral mucosa moist, tongue midline. Oropharynx unremarkable. Airway patent. Nares patent, no nasal septal hematoma, TM's intact. NECK: Full range of motion. Supple. Trachea midline. LUNGS: Clear to auscultation bilaterally, no wheezes, rales, or rhonchi. No respiratory distress. HEART: Tachycardia, normal rhythm. No murmur ABDOMEN: Minimal generalized abdominal tenderness. Non-distended. Bowel sounds present in all 4 quadrants. GENITOURINARY: Deferred EXTREMITIES: Moves all 4 extremities spontaneously. No edema, normal radial and dorsalis pedis pulses bilaterally. No cyanosis. BACK: no cervical, thoracic, lumbar midline tenderness. No saddle anesthesia, normal distal neurovascular exam. Moves all extremities in full range of motion. NEUROLOGICAL: Alert and oriented x3. Normal speech. Cranial nerves II through XII grossly intact. SKIN: Pale Course - Re-evaluation Re-evalutation: Patient pale, tachycardic, and well-appearing. However he is alert, he is not in distress, he is not confused. He is not hypotensive or febrile. Tachycardia resolved with initiation of IV fluids. CBC unremarkable. Chemistry shows hyperglycemia in the 500s with elevated anion gap and low bicarbonate. Venous blood gas shows pH of 7.15 with metabolic acidosis. Consistent with diabetic ketoacidosis. Patient has been given 2 L of lactated Ringer's, started on an insulin drip, he will be admitted to the hospital. I discussed with patient, grandparents were not bedside, they state satisfaction agreement with plan. Discussed with Dr. Pink, patient admitted to the [facility] full admission. - Vital Signs Vital signs: Temp Pulse Resp BP Pulse Ox 97.3 F 76 17 119/64 100 02/01/19 03:27 02/01/19 03:27 02/01/19 03:27 02/01/19 03:27 02/01/19 03:27 - Laboratory Result Diagrams: 02/01/19 04:28 02/01/19 04:28 Laboratory results interpreted by me: 01/31/19 01/31/19 01/31/19 22:15 22:15 22:17 Hct 51.5 H MCV 98 H VBG pH 7.15 L* VBG HCO3 12.4 L Sodium 136.5 L Chloride 96 L Carbon Dioxide 14 L Anion Gap 27 H Glucose 591 H* POC Glucose Albumin 5.2 H Urine Glucose (UA) Urine Ketones Urine Blood 01/31/19 01/31/19 22:55 23:15 Hct MCV VBG pH VBG HCO3 Sodium Chloride Carbon Dioxide Anion Gap Glucose POC Glucose 383 H Albumin Urine Glucose (UA) >=500 H Urine Ketones 80 H Urine Blood SMALL H Discharge - Discharge Clinical Impression: DKA, type 1 Qualifiers: Diabetes mellitus complication detail: without coma Qualified Code(s): E10.10 - Type 1 diabetes mellitus with ketoacidosis without coma Vomiting Qualifiers: Vomiting type: unspecified Vomiting Intractability: non-intractable Nausea presence: with nausea Qualified Code(s): R11.2 - Nausea with vomiting, unspecified Condition: Fair Disposition: ADMITTED INPATIENT Admitting Provider: Joesph (Hospitalist) Unit Admitted: [facility]
[2019-01-31 22:31] LABS: ABSOLUTE EOSINOPHILS # (AUTO) 0.1 10^3/uL (0.0-0.6); ABSOLUTE LYMPHOCYTES (AUTO) 2.1 10^3/uL (0.5-4.7); ABSOLUTE MONOCYTES (AUTO) 0.4 10^3/uL (0.1-1.4); BASOPHILS % (AUTO) 0.2 % (0-2); EOSINOPHILS % (AUTO) 1.3 % (0-6); HEMATOCRIT 51.5 % (37.9-51.0); LYMPHOCYTES % (AUTO) 21.8 % (13-45); MEAN CORPUSCULAR HEMOGLOBIN 32.1 pg (27.0-33.4); MEAN CORPUSCULAR HGB CONC 32.9 g/dL (32.0-36.0); MEAN CORPUSCULAR VOLUME 98 fl (80-97); PLATELET COUNT 236 10^3/uL (150-450); RED BLOOD COUNT 5.27 10^6/uL (4.35-5.55); RED CELL DISTRIBUTION WIDTH 13.5 % (11.5-14.0); SEGMENTED NEUTROPHILS % (AUTO) 72.7 % (42-78); TOTAL CELLS COUNTED % (AUTO) 100 %; WHITE BLOOD COUNT 9.6 10^3/uL (4.0-10.5)
[2019-01-31 22:35] LABS: VENOUS BLOOD BASE EXCESS -15.7 mmol/L; VENOUS BLOOD HCO3 12.4 mmol/L (20-32); VENOUS BLOOD PCO2 36.9 mmHg (35-63)
[2019-01-31 22:37] LABS: VENOUS BLOOD PH 7.15 (7.30-7.42)
[2019-01-31] MEDS ORDERED: INSULIN REG, HUMAN 100 UNIT/ML 3 ML VIAL (PYX) IV ONE (22:41)
[2019-01-31 22:52] LABS: ALANINE AMINOTRANSFERASE 30 U/L (21-72); ALBUMIN 5.2 g/dL (3.5-5.0); ALKALINE PHOSPHATASE 116 U/L (38-126); ASPARTATE AMINO TRANSFERASE 28 U/L (17-59); BILIRUBIN,DIRECT 0.4 mg/dL (0.0-0.4); BILIRUBIN,TOTAL 0.9 mg/dL (0.2-1.3); BLOOD UREA NITROGEN 16 mg/dL (7-20); CALCIUM 10.2 mg/dL (8.4-10.2); TOTAL PROTEIN 8.1 g/dL (6.3-8.2)
[2019-01-31 22:57] LABS: CARBON DIOXIDE 14 mmol/L (22-30)
[2019-01-31] MEDS ORDERED: NORMAL SALINE 100 ML with INSULIN REGULAR, HUMAN 100 UNIT IV PRN ×4 (22:59→23:13)
[2019-01-31 23:00] LABS: CHLORIDE 96 mmol/L (98-107); SODIUM 136.5 mmol/L (137-145)
[2019-01-31 23:02] LABS: ANION GAP 27 (5-19)
[2019-01-31 23:04] LABS: GLUCOSE 591 mg/dL (75-110)
[2019-01-31] MEDS: RINGERS SOLUTION,LACTATED 1,000 ML IV PRN (23:11)
[2019-01-31] MEDS ORDERED: DEXTROSE 40% GEL 15 GM TUBE PO PRN ×2 (23:13)
[2019-01-31] MEDS ORDERED: DEXTROSE 50%-WATER 25 GM/50 ML DISP.SYRIN IV PRN ×2 (23:13)
[2019-01-31] MEDS ORDERED: ONDANSETRON HCL INJ/PF 4 MG/2 ML SDV IV PRN (23:13)
[2019-01-31] MEDS ORDERED: IPRATROPIUM/ALBUTEROL 0.5-2.5 MG/3 ML AMPUL NEB PRN (23:13)
[2019-01-31] MEDS ORDERED: GLUCAGON,HUMAN RECOMB 1 MG INJ IM PRN (23:13)
[2019-01-31] MEDS ORDERED: ACETAMINOPHEN 325 MG TABLET PO PRN (23:13)
[2019-01-31] MEDS ORDERED: MAG HYDROX/AL HYDROX/SIMETH SUSP 30 ML UDCUP PO PRN (23:13)
[2019-01-31] MEDS ORDERED: POTASSI CL 20 MEQ/D5-1/2NS 1L 1,000 ML IV SCH (23:15)
[2019-01-31 23:53] LABS: URINE BARBITURATES SCREEN NEGATIVE; URINE COCAINE SCREEN NEGATIVE; URINE MARIJUANA (THC) SCREEN NEGATIVE; URINE METHADONE SCREEN NEGATIVE; URINE PHENCYCLIDINE SCREEN NEGATIVE
[2019-01-31 23:54] LABS: URINE BENZODIAZEPINES SCREEN NEGATIVE
[2019-02-01 00:09] LABS: APPEARANCE,URINE CLEAR; BILIRUBIN,URINE NEGATIVE (NEGATIVE); COLOR,URINE STRAW; GLUCOSE, URINE >=500 mg/dL (NEGATIVE); KETONES,URINE 80 mg/dL (NEGATIVE); LEUKOCYTE ESTERASE,URINE NEGATIVE (NEGATIVE); NITRITE,URINE NEGATIVE (NEGATIVE); PROTEIN,URINE NEGATIVE (NEGATIVE); URINE SPECIFIC GRAVITY 1.027; UROBILINOGEN,URINE NEGATIVE mg/dL (<2.0)
[2019-02-01 00:16] LABS: URINE AMPHETAMINES SCREEN NEGATIVE
[2019-02-01] MEDS: RINGERS SOLUTION,LACTATED 1,000 ML IV PRN (00:20)
[2019-02-01] MEDS: OLANZAPINE 5 MG TABLET PO SCH ×2 (00:23→23:03)
[2019-02-01] MEDS ORDERED: NORMAL SALINE 1000 ML 1,000 ML IV ONE (04:21)
--- NOTE | 2019-02-01 04:28 | PDOC H&P ---
History of Present Illness Admission Date/PCP: 01/31/19 23:29 Patient complains of: Nausea and vomiting History of Present Illness: JAMIL WYLIE is a 23 year old male with a past medical history of insulin- dependent diabetes, intermittent explosive disorder and lifestyle medication noncompliance. He presents with 72 hours of polyuria polydipsia and uncontroll ed blood sugar developing abdominal pain nausea vomiting prompting him to seek evaluation in the emergency room where he is found to have severe diabetic ketoacidosis. He started on IV fluid, IV insulin and referred to the hospitalist for admission. Patient admits to complete noncompliance with short acting insulin Past Medical History Cardiac Medical History: Denies: Congestive Heart Failure, Coronary Artery Disease, Myocardial Infarction, Hypertension Pulmonary Medical History: Denies: Asthma, Bronchitis, Chronic Obstructive Pulmonary Disease (COPD), Pneumonia, Tuberculosis Neurological Medical History: Reports: Migraine Denies: Seizures Endocrine Medical History: Reports: Diabetes Mellitus Type 1 Denies: Hyperthyroidism, Hypothyroidism Renal/ Medical History: Denies: End Stage Renal Disease GI Medical History: Reports: Gastroesophageal Reflux Disease Denies: Cirrhosis, Hepatitis Musculoskeltal Medical History: Denies: Arthritis, Gout Skin Medical History: Denies: Eczema, Psoriasis Psychiatric Medical History: Reports: Bipolar Disorder, Depression, Tobacco Dependency Hematology: Denies: Anemia, Bleeding Tendencies Past Surgical History Past Surgical History: Reports: Orthopedic Surgery - right hand, Other - ear tubes when was 5 months old Social History Information Source: Patient Smoking Status: Current Every Day Smoker Cigarettes Packs Per Day: 0.5 Number of Years Smokin Frequency of Alcohol Use: Occasional Hx Recreational Drug Use: No Drugs: None Hx Prescription Drug Abuse: No - Advance Directive Resuscitation Status: Full Code Family History Family History: Arthritis, CAD, COPD, CVA, DM, Hyperlipidemia, Hypertension, Thyroid Disfunction Parental Family History Reviewed: Yes Children Family History Reviewed: Yes Sibling(s) Family History Reviewed.: Yes Medication/Allergy Home Medications: Insulin Glargine,Hum.rec.anlog [Lantus Insulin 100 Unit/mL Insulin Pen] 36 units SQ QHS 08/26/18 Insulin Lispro [Humalog Insulin (Lispro) 100 unit/mL] 0 unit SQ .SLIDING SCALE 08/26/18 Lamotrigine [Lamictal] 200 mg PO DAILY 08/26/18 Olanzapine [Zyprexa] 20 mg PO QHS 08/26/18 Allergies/Adverse Reactions: No Known Allergies Allergy (Verified 05/16/18 13:54) Review of Systems Constitutional: PRESENT: as per HPI, anorexia, fatigue, weight loss. ABSENT: f ever(s), weakness Eyes: ABSENT: visual disturbances Ears: ABSENT: hearing changes Cardiovascular: ABSENT: chest pain, dyspnea on exertion, edema, orthropnea, palpitations Respiratory: ABSENT: cough, hemoptysis Gastrointestinal: PRESENT: as per HPI, abdominal pain, nausea, vomiting Genitourinary: ABSENT: dysuria, hematuria Musculoskeletal: ABSENT: joint swelling Integumentary: ABSENT: rash, wounds Neurological: ABSENT: abnormal gait, abnormal speech, confusion, dizziness, focal weakness, syncope Psychiatric: ABSENT: anxiety, depression, homidical ideation, suicidal ideation Endocrine: ABSENT: cold intolerance, heat intolerance, polydipsia, polyuria Hematologic/Lymphatic: ABSENT: easy bleeding, easy bruising Physical Exam Vital Signs: Temp Pulse Resp BP Pulse Ox 97.3 F 76 17 85/47 L 100 02/01/19 03:27 02/01/19 03:27 02/01/19 03:27 02/01/19 03:27 02/01/19 03:27 Intake & Output 01/30/19 01/31/19 02/01/19 11:59 11:59 11:59 Intake Total 1023 Balance 1023 Weight 63.1 kg General appearance: PRESENT: cooperative, disheveled, mild distress, thin Head exam: PRESENT: atraumatic, normocephalic Eye exam: PRESENT: conjunctiva pink, EOMI, PERRLA. ABSENT: scleral icterus Ear exam: PRESENT: normal external ear exam Mouth exam: PRESENT: dry mucosa, tongue midline Neck exam: ABSENT: carotid bruit, JVD, lymphadenopathy, thyromegaly Respiratory exam: PRESENT: accessory muscle use, retraction, symmetrical, tach ypnea. ABSENT: crackles, rales Cardiovascular exam: PRESENT: tachycardia. ABSENT: diastolic murmur, rubs, systolic murmur Pulses: PRESENT: normal dorsalis pedis pul Vascular exam: PRESENT: normal capillary refill GI/Abdominal exam: PRESENT: normal bowel sounds, soft. ABSENT: distended, guarding, mass, organolmegaly, rebound, tenderness Rectal exam: PRESENT: deferred Extremities exam: PRESENT: full ROM. ABSENT: calf tenderness, clubbing, pedal edema Neurological exam: PRESENT: alert, awake, oriented to person, oriented to place, oriented to time, oriented to situation, CN II-XII grossly intact. ABSENT: motor sensory deficit Psychiatric exam: PRESENT: flat affect, unusual affect. ABSENT: homicidal ideation, suicidal ideation Skin exam: PRESENT: dry, intact, warm. ABSENT: cyanosis, rash Results Laboratory Results: 01/31/19 22:15 01/31/19 22:15 01/31/19 01/31/19 01/31/19 22:15 22:15 22:15 WBC 9.6 RBC 5.27 Hgb 17.0 Hct 51.5 H MCV 98 H MCH 32.1 MCHC 32.9 RDW 13.5 Plt Count 236 Seg Neutrophils % 72.7 Lymphocytes % 21.8 Monocytes % 4.0 Eosinophils % 1.3 Basophils % 0.2 Absolute Neutrophils 7.0 Absolute Lymphocytes 2.1 Absolute Monocytes 0.4 Absolute Eosinophils 0.1 Absolute Basophils 0.0 VBG pH VBG pCO2 VBG HCO3 VBG Base Excess Sodium 136.5 L Potassium 5.0 Chloride 96 L Carbon Dioxide 14 L Anion Gap 27 H BUN 16 Creatinine 0.88 Est GFR ( Amer) > 60 Est GFR (Non-Af Amer) > 60 Glucose 591 H* Calcium 10.2 Phosphorus Cancelled Magnesium 1.8 Total Bilirubin 0.9 AST 28 ALT 30 Alkaline Phosphatase 116 Total Protein 8.1 Albumin 5.2 H Urine Color Urine Appearance Urine pH Ur Specific [place] Urine Protein Urine Glucose (UA) Urine Ketones Urine Blood Urine Nitrite Ur Leukocyte Esterase Urine WBC (Auto) Urine RBC (Auto) 01/31/19 01/31/19 22:17 23:15 WBC RBC Hgb Hct MCV MCH MCHC RDW Plt Count Seg Neutrophils % Lymphocytes % Monocytes % Eosinophils % Basophils % Absolute Neutrophils Absolute Lymphocytes Absolute Monocytes Absolute Eosinophils Absolute Basophils VBG pH 7.15 L* VBG pCO2 36.9 VBG HCO3 12.4 L VBG Base Excess -15.7 Sodium Potassium Chloride Carbon Dioxide Anion Gap BUN Creatinine Est GFR ( Amer) Est GFR (Non-Af Amer) Glucose Calcium Phosphorus Magnesium Total Bilirubin AST ALT Alkaline Phosphatase Total Protein Albumin Urine Color STRAW Urine Appearance CLEAR Urine pH 5.0 Ur Specific [place] 1.027 Urine Protein NEGATIVE Urine Glucose (UA) >=500 H Urine Ketones 80 H Urine Blood SMALL H Urine Nitrite NEGATIVE Ur Leukocyte Esterase NEGATIVE Urine WBC (Auto) 0 Urine RBC (Auto) 1 Assessment and Plan - Diagnosis (1) Diabetes mellitus type 1 with ketoacidosis Qualifiers: Diabetes mellitus complication detail: without coma Qualified Code(s): E10.10 - Type 1 diabetes mellitus with ketoacidosis without coma Is this a current diagnosis for this admission?: Yes Plan: Diabetic ketoacidosis patient has had some degree of polyuria polydipsia with nausea and uncontrolled hyperglycemia with supporting labs. Patient will receive IV fluids IV insulin serial chemistries every 6 hours for evaluation for electrolyte repletion. Continued evaluation for underlying cause if not found Patient will require diabetic education and consideration of mental health evaluation. (2) Tobacco abuse Is this a current diagnosis for this admission?: Yes Plan: Tobacco Dependence patient received tobacco cessation counseling and offered nicotine replacement options (3) Outbursts of explosive behavior Is this a current diagnosis for this admission?: Yes Plan: Zyprexa - Time Time Spent with patient: 35 or more minutes - Inpatient Certification Medical Necessity: Need Close Monitoring Due to Risk of Patient Decompensation
[2019-02-01 04:52] LABS: ABSOLUTE EOSINOPHILS # (AUTO) 0.1 10^3/uL (0.0-0.6); ABSOLUTE LYMPHOCYTES (AUTO) 2.2 10^3/uL (0.5-4.7); ABSOLUTE MONOCYTES (AUTO) 0.5 10^3/uL (0.1-1.4); ABSOLUTE NEUT (AUTO) 5.7 10^3/uL (1.7-8.2); BASOPHILS % (AUTO) 0.1 % (0-2); EOSINOPHILS % (AUTO) 0.6 % (0-6); HEMATOCRIT 39.5 % (37.9-51.0); MEAN CORPUSCULAR HEMOGLOBIN 32.2 pg (27.0-33.4); MEAN CORPUSCULAR HGB CONC 34.6 g/dL (32.0-36.0); MONOCYTES % (AUTO) 5.6 % (3-13); PLATELET COUNT 180 10^3/uL (150-450); RED BLOOD COUNT 4.24 10^6/uL (4.35-5.55); SEGMENTED NEUTROPHILS % (AUTO) 67.7 % (42-78); TOTAL CELLS COUNTED % (AUTO) 100 %; WHITE BLOOD COUNT 8.4 10^3/uL (4.0-10.5)
[2019-02-01 04:54] LABS: HEMOGLOBIN 13.7 g/dL (13.5-17.0); MEAN CORPUSCULAR VOLUME 93 fl (80-97)
[2019-02-01 05:00] LABS: ANION GAP 8 (5-19); BLOOD UREA NITROGEN 10 mg/dL (7-20); CALCIUM 8.6 mg/dL (8.4-10.2); CARBON DIOXIDE 23 mmol/L (22-30); CHLORIDE 108 mmol/L (98-107); GLUCOSE 215 mg/dL (75-110); POTASSIUM 4.2 mmol/L (3.6-5.0)
[2019-02-01] MEDS: HEPARIN SOD (PORCINE) 5,000 UNIT/ML 1 ML SYRINGE SUBCUT SCH ×3 (06:35→23:02)
--- NOTE | 2019-02-01 07:19 | EKG REPORT ---
SEVERITY:- BORDERLINE ECG - SINUS RHYTHM PROBABLE LEFT ATRIAL ABNORMALITY : Confirmed by: Eddie Connors MD 01-Feb-2019 07:18:32
[2019-02-01] MEDS ORDERED: POTASSI CL 20 MEQ/D5-1/2NS 1L 1000 ML IV ONE (07:43)
--- NOTE | 2019-02-01 13:50 | PDOC PROGRESS REPORT ---
Subjective Progress Note for:: 02/01/19 Subjective:: This is 23 years old male patient with past medical history of type 1 diabetes mellitus, bipolar disorder, depression, tobacco dependence and medical noncompliance presented with chief complaint of nausea, vomiting, abdominal pain, polyuria and polydipsia. At presentation his blood sugar was greater than 500 bicarb 14, anion gap of 27 and his urine analysis shows ketonuria. Patient has been started on hydration and insulin drip. This morning patient evaluated his blood sugar is improving his anion gap closed and his bicarb has normalized. We will start to feed the patient and switch him to subcu insulin. Reason For Visit: DKA Physical Exam Vital Signs: Temp Pulse Resp BP Pulse Ox 97.5 F 90 16 107/56 L 94 02/01/19 10:51 02/01/19 11:12 02/01/19 11:12 02/01/19 10:51 02/01/19 11:12 Intake & Output 01/31/19 02/01/19 02/02/19 06:59 06:59 06:59 Intake Total 1031 0 Output Total 0 Balance 1031 0 Weight 64.1 kg General appearance: PRESENT: no acute distress Head exam: PRESENT: atraumatic Mouth exam: PRESENT: dry mucosa Neck exam: ABSENT: carotid bruit, JVD, lymphadenopathy, thyromegaly Respiratory exam: PRESENT: clear to auscultation mook. ABSENT: rales, rhonchi, wheezes Cardiovascular exam: PRESENT: RRR. ABSENT: diastolic murmur, rubs, systolic murmur GI/Abdominal exam: PRESENT: normal bowel sounds, soft. ABSENT: distended, guarding, mass, organolmegaly, rebound, tenderness Neurological exam: PRESENT: alert, awake Results Laboratory Results: 02/01/19 04:28 02/01/19 04:28 01/31/19 01/31/19 01/31/19 22:15 22:15 22:15 WBC 9.6 RBC 5.27 Hgb 17.0 Hct 51.5 H MCV 98 H MCH 32.1 MCHC 32.9 RDW 13.5 Plt Count 236 Seg Neutrophils % 72.7 Lymphocytes % 21.8 Monocytes % 4.0 Eosinophils % 1.3 Basophils % 0.2 Absolute Neutrophils 7.0 Absolute Lymphocytes 2.1 Absolute Monocytes 0.4 Absolute Eosinophils 0.1 Absolute Basophils 0.0 VBG pH VBG pCO2 VBG HCO3 VBG Base Excess Sodium 136.5 L Potassium 5.0 Chloride 96 L Carbon Dioxide 14 L Anion Gap 27 H BUN 16 Creatinine 0.88 Est GFR ( Amer) > 60 Est GFR (Non-Af Amer) > 60 Glucose 591 H* Calcium 10.2 Phosphorus Cancelled Magnesium 1.8 Total Bilirubin 0.9 AST 28 ALT 30 Alkaline Phosphatase 116 Total Protein 8.1 Albumin 5.2 H Urine Color Urine Appearance Urine pH Ur Specific [place] Urine Protein Urine Glucose (UA) Urine Ketones Urine Blood Urine Nitrite Ur Leukocyte Esterase Urine WBC (Auto) Urine RBC (Auto) 01/31/19 01/31/19 02/01/19 22:17 23:15 04:28 WBC 8.4 RBC 4.24 L Hgb 13.7 D Hct 39.5 MCV 93 D MCH 32.2 MCHC 34.6 RDW 13.0 Plt Count 180 Seg Neutrophils % 67.7 Lymphocytes % 26.0 Monocytes % 5.6 Eosinophils % 0.6 Basophils % 0.1 Absolute Neutrophils 5.7 Absolute Lymphocytes 2.2 Absolute Monocytes 0.5 Absolute Eosinophils 0.1 Absolute Basophils 0.0 VBG pH 7.15 L* VBG pCO2 36.9 VBG HCO3 12.4 L VBG Base Excess -15.7 Sodium Potassium Chloride Carbon Dioxide Anion Gap BUN Creatinine Est GFR ( Amer) Est GFR (Non-Af Amer) Glucose Calcium Phosphorus Magnesium Total Bilirubin AST ALT Alkaline Phosphatase Total Protein Albumin Urine Color STRAW Urine Appearance CLEAR Urine pH 5.0 Ur Specific [place] 1.027 Urine Protein NEGATIVE Urine Glucose (UA) >=500 H Urine Ketones 80 H Urine Blood SMALL H Urine Nitrite NEGATIVE Ur Leukocyte Esterase NEGATIVE Urine WBC (Auto) 0 Urine RBC (Auto) 1 02/01/19 04:28 WBC RBC Hgb Hct MCV MCH MCHC RDW Plt Count Seg Neutrophils % Lymphocytes % Monocytes % Eosinophils % Basophils % Absolute Neutrophils Absolute Lymphocytes Absolute Monocytes Absolute Eosinophils Absolute Basophils VBG pH VBG pCO2 VBG HCO3 VBG Base Excess Sodium 139.0 Potassium 4.2 Chloride 108 H Carbon Dioxide 23 Anion Gap 8 BUN 10 Creatinine 0.38 L Est GFR ( Amer) > 60 Est GFR (Non-Af Amer) > 60 Glucose 215 H Calcium 8.6 Phosphorus Magnesium Total Bilirubin AST ALT Alkaline Phosphatase Total Protein Albumin Urine Color Urine Appearance Urine pH Ur Specific [place] Urine Protein Urine Glucose (UA) Urine Ketones Urine Blood Urine Nitrite Ur Leukocyte Esterase Urine WBC (Auto) Urine RBC (Auto) Assessment and Plan - Diagnosis (1) DKA (diabetic ketoacidosis) Qualifiers: Diabetes mellitus type: type 1 Is this a current diagnosis for this admission?: Yes Plan: Resolving. His fluid switched to have saline and D5. (2) Bipolar disorder Is this a current diagnosis for this admission?: Yes Plan: We will continue his Lamictal (3) Tobacco dependence Is this a current diagnosis for this admission?: Yes Plan: Patient counseled and encouraged to quit smoking. (4) Medical non-compliance Is this a current diagnosis for this admission?: Yes Plan: I will reinforce diabetic education.
[2019-02-01] MEDS ORDERED: INSULIN REG, HUMAN 100 UNIT/ML 3 ML VIAL (PYX) SUBCUT ONE (14:00)
[2019-02-01] MEDS: DOCUSATE SODIUM 100 MG CAPSULE PO SCH ×2 (14:58→23:03)
[2019-02-01] MEDS: LAMOTRIGINE 100 MG TABLET PO SCH (14:59)
[2019-02-01] MEDS ORDERED: INSULIN GLARGINE,HUM.REC.ANLOG 1,000 UNIT/10 ML VIAL (PYX) SUBCUT ONE (15:00)
[2019-02-01] MEDS ORDERED: INSULIN GLARGINE,HUM.REC.ANLOG 1,000 UNIT/10 ML VIAL SUBCUT SCH (22:00)
[2019-02-01] MEDS: INSULIN LISPRO 100 UNIT/ML 3 ML VIAL SUBCUT SCH (23:01)
[2019-02-02] MEDS: HEPARIN SOD (PORCINE) 5,000 UNIT/ML 1 ML SYRINGE SUBCUT SCH (05:44)
[2019-02-02] MEDS: INSULIN LISPRO 100 UNIT/ML 3 ML VIAL SUBCUT SCH ×4 (08:30→12:07)
[2019-02-02] MEDS: LAMOTRIGINE 100 MG TABLET PO SCH (09:03)
[2019-02-02] MEDS: DOCUSATE SODIUM 100 MG CAPSULE PO SCH (09:04)
[2019-02-02 12:35] VITALS: BP 116/62
--- NOTE | 2019-02-04 15:14 | PDOC DISCHARGE SUMMARY ---
General - Admit/Disc Date/PCP Admission Date/Primary Care Provider: 01/31/19 23:29 Discharge Date: 02/02/19 - Discharge Diagnosis (1) DKA (diabetic ketoacidosis) Is this a current diagnosis for this admission?: Yes (2) Bipolar disorder Is this a current diagnosis for this admission?: Yes (3) Tobacco dependence Is this a current diagnosis for this admission?: Yes (4) Medical non-compliance Is this a current diagnosis for this admission?: Yes - Additional Information Resuscitation Status: Full Code Home Medications: Insulin Glargine,Hum.rec.anlog [Lantus Insulin 100 Unit/mL Insulin Pen] 36 units SQ QHS 08/26/18 Insulin Lispro [Humalog Insulin (Lispro) 100 unit/mL] 0 unit SQ .SLIDING SCALE 08/26/18 History of Present Illness History of Present Illness: JAMIL WYLIE is a 23 year old male with a past medical history of insulin- dependent diabetes, intermittent explosive disorder and lifestyle medication noncompliance. He presents with 72 hours of polyuria polydipsia and uncontrolled blood sugar developing abdominal pain nausea vomiting prompting him to seek evaluation in the emergency room where he is found to have severe diabetic ketoacidosis. He started on IV fluid, IV insulin and referred to the hospitalist for admission. Patient admits to complete noncompliance with short acting insulin Hospital Course Hospital Course: This is 23 years old male patient with past medical history of type 1 diabetes mellitus, bipolar disorder, depression, tobacco dependence and medical noncompliance presented with chief complaint of nausea, vomiting, abdominal pain, polyuria and polydipsia. At presentation his blood sugar was greater than 500 bicarb 14, anion gap of 27 and his urine analysis shows ketonuria. Patient has been started on hydration and insulin drip. This morning patient evaluated his blood sugar is improving his anion gap closed and his bicarb has normalized. Currently patient is off insulin drip and has been switched to subcu Lantus 36 units nightly. He eats well and he tolerates well. He does not have any fever, nausea or vomiting. I have a long discussion regarding the consequence of recurrent DKA. Reportedly patient is not compliant with his medication and follow-up with his primary care physician. He told me he has enough Humalog and Lantus. Physical Exam Vital Signs: Temp Pulse Resp BP Pulse Ox 97.6 F 71 16 109/60 97 02/02/19 07:32 02/02/19 09:09 02/02/19 09:09 02/02/19 07:32 02/02/19 09:09 Intake & Output 02/01/19 02/02/19 02/03/19 06:59 06:59 06:59 Intake Total 1031 1040 Output Total 0 Balance 1031 1040 Weight 64.1 kg 62.9 kg General appearance: PRESENT: no acute distress, well-developed, well-nourished Head exam: PRESENT: atraumatic, normocephalic Eye exam: PRESENT: conjunctiva pink, EOMI, PERRLA. ABSENT: scleral icterus Ear exam: PRESENT: normal external ear exam Mouth exam: PRESENT: moist, tongue midline Neck exam: ABSENT: carotid bruit, JVD, lymphadenopathy, thyromegaly Respiratory exam: PRESENT: clear to auscultation mook. ABSENT: rales, rhonchi, wheezes Cardiovascular exam: PRESENT: RRR. ABSENT: diastolic murmur, rubs, systolic murmur Pulses: PRESENT: normal dorsalis pedis pul Vascular exam: PRESENT: normal capillary refill GI/Abdominal exam: PRESENT: normal bowel sounds, soft. ABSENT: distended, guarding, mass, organolmegaly, rebound, tenderness Rectal exam: PRESENT: deferred Extremities exam: PRESENT: full ROM. ABSENT: calf tenderness, clubbing, pedal edema Neurological exam: PRESENT: alert, awake, oriented to person, oriented to place, oriented to time, oriented to situation, CN II-XII grossly intact. ABSENT: motor sensory deficit Psychiatric exam: PRESENT: appropriate affect, normal mood. ABSENT: homicidal ideation, suicidal ideation Skin exam: PRESENT: dry, intact, warm. ABSENT: cyanosis, rash Results Laboratory Results: 02/01/19 04:28 02/01/19 04:28 Qualifiers - * PATIENT BEING DISCHARGED WITH ANY OF THE FOLLOWING DIAGNOSIS: No Acute Heart Failure - Is this a Heart Failure Patient?: No LVEF < 40%?: No- if no continue to question #3 e) For LVEF <35%, discharged on Aldosterone antagonist?: N/A (LVEF > or = 35%) 3. Anticoagulant therapy for permanect/persistent/paraoxysmal Afib or Aflutter: N/A
== END 2019-02-02 12:39 | disposition home or self-care (01) | DRG 639 ==
LOC: ER 22:08 → EH 23:29 → 3S 02-01 02:50
PROVIDERS: ADMIT Internal Medicine; ATTEND Internal Medicine
DX: E10.10 Type 1 diabetes mellitus with ketoacidosis without coma (principal); Z79.4 Long term (current) use of insulin; K21.9 Gastro-esophageal reflux disease without esophagitis; F31.9 Bipolar disorder, unspecified; F63.81 Intermittent explosive disorder; T38.3X6A Underdosing of insulin and oral hypoglycemic [antidiabetic] drugs, initial encounter; F17.210 Nicotine dependence, cigarettes, uncomplicated; Z83.3 Family history of diabetes mellitus; Z82.3 Family history of stroke; Z82.49 Family history of ischemic heart disease and other diseases of the circulatory system; Z79.899 Other long term (current) drug therapy
CPT/HCPCS: 36415; 80053; 80307; 81001; 82803; 82962; 83735; 85025; 93005; 93010; 99285; J1644; J1815; J3480; J3490; J7030; J7050; J7120

== ENCOUNTER 2019-05-07 19:23 | Inpatient (IN) | payer SELFPAY ==
[2019-05-07] MEDS ORDERED: NORMAL SALINE 1000 ML 1,000 ML IV ONE ×2 (19:30→20:37)
--- NOTE | 2019-05-07 19:35 | ER Document Report ---
ED General - General Stated Complaint: CHEST PAIN Time Seen by Provider: 05/07/19 19:28 Notes: 23-year-old male presents with fatigue upper abdominal pain and nausea in the setting of high blood sugars for 2 days. Type I diabetic diagnosed with 13 for episodes of DKA with noncompliance. Denies current chest pain shortness of breath but was breathing heavy and "smells like DKA" for EMS. No skin skin infections or urinary symptoms. TRAVEL OUTSIDE OF THE [place] IN LAST 30 DAYS: No - Related Data Allergies/Adverse Reactions: No Known Allergies Allergy (Verified 05/16/18 13:54) Past Medical History - Social History Smoking Status: Never Smoker Family History: Arthritis, CAD, COPD, CVA, DM, Hyperlipidemia, Hypertension, Thyroid Disfunction - Past Medical History Cardiac Medical History: Denies: Hx Congestive Heart Failure, Hx Coronary Artery Disease, Hx Heart Attack, Hx Hypertension Pulmonary Medical History: Denies: Hx Asthma, Hx Bronchitis, Hx COPD, Hx Pneumonia, Hx Tuberculosis Neurological Medical History: Reports: Hx Migraine. Denies: Hx Cerebrovascular Accident, Hx Seizures Endocrine Medical History: Reports: Hx Diabetes Mellitus Type 1. Denies: Hx Hyperthyroidism, Hx Hypothyroidism Renal/ Medical History: Denies: Hx Benign Prostatic Hyperplasia, Hx End Stage Renal Disease, Hx Kidney Stones, Hx Peritoneal Dialysis GI Medical History: Reports: Hx Gastroesophageal Reflux Disease. Denies: Hx Cirrhosis, Hx Hepatitis, Hx Ulcer Musculoskeletal Medical History: Denies Hx Arthritis, Denies Hx Gout, Denies Hx Multiple Sclerosis Skin Medical History: Denies Hx Eczema, Denies Hx Psoriasis Psychiatric Medical History: Reports: Hx Bipolar Disorder, Hx Depression Denies: Hx Schizophrenia Infectious Medical History: Denies: Hx Hepatitis Past Surgical History: Reports: Hx Myringotomy, Hx Orthopedic Surgery - right hand, Other - ear tubes when was 5 months old - Immunizations Immunizations up to date: Yes Hx Diphtheria, Pertussis, Tetanus Vaccination: Yes - 2017 Review of Systems - Review of Systems Notes: REVIEW OF SYSTEMS GEN: Denies fever, chills, weight loss ENT: Denies sore throat, nasal discharge, ear pain EYES: Denies blurry vision, eye pain, discharge CV: See HPI RESP: Eating GI: See HPI MSK: Denies joint pain/swelling, edema, SKIN: Denies rash, skin lesions LYMPH: Denies swollen glands/lymph nodes NEURO: Denies headache, focal weakness or numbness, dizziness PSYCH: Denies depression, suicidal or homicidal ideation PHYSICAL EXAMINATION General: No acute distress, well-nourished Head: Atraumatic, normocephalic ENT: Mouth normal, oropharynx dry no exudates or tonsillar enlargement Eyes: Conjunctiva normal, pupils equal, lids normal Neck: No JVD, supple, no guarding CVS: Normal rate, regular rhythm, no murmurs Resp: Tachypnea, no resp distress, equal and normal breath sounds bilaterally GI: Nondistended, soft, no tenderness to palpation, no rebound or guarding Ext: No deformities, no edema, normal range of motion in upper and lower ext Back: No CVA or midline TTP Skin: No rash, warm Lymphatic: No lymphadeopathy noted Neuro: Awake, alert. Face symmetric. GCS 15. Physical Exam - Vital signs Vitals: Resp 29 H 05/07/19 19:31 Course - Re-evaluation Re-evalutation: 05/07/19 20:38 Patient presents with nausea elevated blood sugar and tachypnea concerning for diabetic acidosis. In terms of causes, no infectious process apparent on exam, and is likely result of noncompliance. Sugar is 300. Anion gap is 20 with decreased bicarb of 14. VBG is not yet been obtained. He is received 1 L of IV fluids. I would add a second liter of IV fluid. Given his potassium, I will do his insulin drip in a potassiumcontaining LR solution. He was given a bolus and drip order. Will discuss with Darryn Pink for admission. - Vital Signs Vital signs: Temp Pulse Resp BP Pulse Ox 99.2 F 21 H 130/76 H 05/07/19 19:33 05/07/19 19:33 05/07/19 19:33 - Laboratory Result Diagrams: 05/07/19 19:41 05/07/19 19:41 Laboratory results interpreted by me: 05/07/19 05/07/19 19:35 19:41 Sodium 134.0 L Carbon Dioxide 14 L Anion Gap 20 H Glucose 310 H POC Glucose 302 H - EKG Interpretation by Me EKG shows normal: Sinus rhythm Rate: Tachycardia When compared to previous EKG there are: No significant change Critical Care Note - Critical Care Note Total time excluding time spent on procedures (mins): 31 - The above patient is critically ill. Not including procedures, but including direct re-evaluations, speaking with patient and/or consultants, interpreting results, and documenting, I spent the total amount of minute listed listed above on critical care time Discharge - Discharge Clinical Impression: Ketoacidosis in insulin-dependent diabetes mellitus without coma, Hypovolemia Condition: Fair Disposition: ADMITTED INPATIENT Admitting Provider: Joesph (Hospitalist) Unit Admitted: [facility]
[2019-05-07 19:53] LABS: ABSOLUTE EOSINOPHILS # (AUTO) 0.1 10^3/uL (0.0-0.6); ABSOLUTE LYMPHOCYTES (AUTO) 2.6 10^3/uL (0.5-4.7); ABSOLUTE MONOCYTES (AUTO) 0.5 10^3/uL (0.1-1.4); ABSOLUTE NEUT (AUTO) 5.2 10^3/uL (1.7-8.2); BASOPHILS % (AUTO) 0.4 % (0-2); EOSINOPHILS % (AUTO) 1.7 % (0-6); HEMATOCRIT 44.2 % (37.9-51.0); HEMOGLOBIN 15.3 g/dL (13.5-17.0); LYMPHOCYTES % (AUTO) 30.3 % (13-45); MEAN CORPUSCULAR HEMOGLOBIN 32.8 pg (27.0-33.4); MEAN CORPUSCULAR HGB CONC 34.6 g/dL (32.0-36.0); MEAN CORPUSCULAR VOLUME 95 fl (80-97); PLATELET COUNT 240 10^3/uL (150-450); RED BLOOD COUNT 4.67 10^6/uL (4.35-5.55); RED CELL DISTRIBUTION WIDTH 12.7 % (11.5-14.0); SEGMENTED NEUTROPHILS % (AUTO) 61.6 % (42-78); TOTAL CELLS COUNTED % (AUTO) 100 %; WHITE BLOOD COUNT 8.4 10^3/uL (4.0-10.5)
[2019-05-07 20:08] LABS: BLOOD UREA NITROGEN 12 mg/dL (7-20); CALCIUM 9.4 mg/dL (8.4-10.2); CARBON DIOXIDE 14 mmol/L (22-30); CHLORIDE 100 mmol/L (98-107); GLUCOSE 310 mg/dL (75-110); POTASSIUM 3.9 mmol/L (3.6-5.0)
[2019-05-07 20:10] LABS: ANION GAP 20 (5-19)
[2019-05-07] MEDS ORDERED: INSULIN REG, HUMAN 100 UNIT/ML 3 ML VIAL (PYX) IV ONE ×2 (20:35)
[2019-05-07] MEDS ORDERED: POTASSI CL 20 MEQ/D5LR 1L 20 MEQ/1,000 ML RTUINJ IV ONE (20:36)
[2019-05-07] MEDS ORDERED: MAG HYDROX/AL HYDROX/SIMETH SUSP 30 ML UDCUP PO PRN (20:40)
[2019-05-07] MEDS ORDERED: NORMAL SALINE 100 ML with INSULIN REGULAR, HUMAN 100 UNIT IV PRN ×2 (20:40)
[2019-05-07] MEDS ORDERED: DEXTROSE 50%-WATER 25 GM/50 ML DISP.SYRIN IV PRN ×2 (20:40)
[2019-05-07] MEDS ORDERED: DEXTROSE 40% GEL 15 GM TUBE PO PRN ×2 (20:40)
[2019-05-07] MEDS ORDERED: ACETAMINOPHEN 325 MG TABLET PO PRN (20:40)
[2019-05-07] MEDS ORDERED: GLUCAGON,HUMAN RECOMB 1 MG INJ IM PRN (20:40)
[2019-05-07] MEDS ORDERED: POTASSI CL 20 MEQ/D5-1/2NS 1L 1,000 ML IV SCH (20:45)
--- NOTE | 2019-05-07 21:01 | EKG REPORT ---
SEVERITY:- NORMAL ECG - SINUS RHYTHM : Confirmed by: Keara Tucker MD 07-May-2019 21:01:06
[2019-05-07 21:38] LABS: ANION GAP 15 (5-19); BLOOD UREA NITROGEN 12 mg/dL (7-20); CALCIUM 8.9 mg/dL (8.4-10.2); CARBON DIOXIDE 19 mmol/L (22-30); CHLORIDE 102 mmol/L (98-107); GLUCOSE 235 mg/dL (75-110); POTASSIUM 4.1 mmol/L (3.6-5.0)
[2019-05-07] MEDS: HEPARIN SOD (PORCINE) 5,000 UNIT/ML 1 ML VIAL SUBCUT SCH (22:15)
[2019-05-07 23:04] LABS: APPEARANCE,URINE CLEAR; BILIRUBIN,URINE NEGATIVE (NEGATIVE); COLOR,URINE YELLOW; GLUCOSE, URINE >=500 mg/dL (NEGATIVE); KETONES,URINE 80 mg/dL (NEGATIVE); LEUKOCYTE ESTERASE,URINE NEGATIVE (NEGATIVE); NITRITE,URINE NEGATIVE (NEGATIVE); PROTEIN,URINE NEGATIVE (NEGATIVE); URINE SPECIFIC GRAVITY 1.021; UROBILINOGEN,URINE NEGATIVE mg/dL (<2.0)
[2019-05-07 23:19] LABS: URINE AMPHETAMINES SCREEN NEGATIVE; URINE BARBITURATES SCREEN NEGATIVE; URINE BENZODIAZEPINES SCREEN NEGATIVE; URINE COCAINE SCREEN NEGATIVE; URINE MARIJUANA (THC) SCREEN UNCONFIRMED POSITIVE; URINE METHADONE SCREEN NEGATIVE; URINE PHENCYCLIDINE SCREEN NEGATIVE
[2019-05-08 01:31] LABS: ANION GAP 10 (5-19); BLOOD UREA NITROGEN 10 mg/dL (7-20); CALCIUM 8.7 mg/dL (8.4-10.2); CARBON DIOXIDE 20 mmol/L (22-30); CHLORIDE 109 mmol/L (98-107); GLUCOSE 96 mg/dL (75-110); POTASSIUM 3.8 mmol/L (3.6-5.0)
--- NOTE | 2019-05-08 01:59 | PDOC H&P ---
History of Present Illness Admission Date/PCP: 05/07/19 20:53 Patient complains of: Nausea and vomiting History of Present Illness: JAMIL WYLIE is a 23 year old male with a past medical history of insulin- dependent diabetes, intermittent explosive disorder and lifestyle, medication noncompliance. He presents with 48 hours of polyuria, polydipsia, uncontrolled blood sugar developing abdominal pain nausea vomiting of gastric content. He admits to noncompliance with his Lantus insulin. He denies running out of his medication, recreational drugs, active illness and is otherwise felt well. In the emergency room is found to have diabetic ketoacidosis receiving lactated Ringer's, insulin and referred to the hospitalist for admission. Past Medical History Cardiac Medical History: Denies: Congestive Heart Failure, Coronary Artery Disease, Myocardial Infarction, Hypertension Pulmonary Medical History: Denies: Asthma, Bronchitis, Chronic Obstructive Pulmonary Disease (COPD), Pneumonia, Tuberculosis Neurological Medical History: Reports: Migraine Denies: Seizures Endocrine Medical History: Reports: Diabetes Mellitus Type 1 Denies: Hyperthyroidism, Hypothyroidism Renal/ Medical History: Denies: End Stage Renal Disease GI Medical History: Reports: Gastroesophageal Reflux Disease Denies: Cirrhosis, Hepatitis Musculoskeltal Medical History: Denies: Arthritis, Gout Skin Medical History: Denies: Eczema, Psoriasis Psychiatric Medical History: Reports: Bipolar Disorder, Depression Hematology: Denies: Anemia, Bleeding Tendencies Past Surgical History Past Surgical History: Reports: Orthopedic Surgery - right hand, Other - ear t ubes when was 5 months old Social History Information Source: Patient Smoking Status: Current Every Day Smoker Cigarettes Packs Per Day: 1 Number of Years Smokin Last Time Smoked: 05/07/19 Frequency of Alcohol Use: Occasional Hx Recreational Drug Use: No Drugs: None Hx Prescription Drug Abuse: No - Advance Directive Resuscitation Status: Full Code Family History Family History: Arthritis, CAD, COPD, CVA, DM, Hyperlipidemia, Hypertension, Thyroid Disfunction Parental Family History Reviewed: Yes Children Family History Reviewed: Yes Sibling(s) Family History Reviewed.: Yes Medication/Allergy Home Medications: Insulin Glargine,Hum.rec.anlog [Lantus Insulin 100 Unit/1 ml 10 ml] 36 unit SUBCUT QHS 05/07/19 Insulin Lispro [Humalog Insulin 100 Unit/1 ml 3 ml Vial] 0 unit SUBCUT .SLD SCALE 05/07/19 Allergies/Adverse Reactions: No Known Allergies Allergy (Verified 05/16/18 13:54) Review of Systems Constitutional: PRESENT: as per HPI, anorexia, fatigue. ABSENT: fever(s), heada morro(s), night sweats, weight gain Eyes: ABSENT: visual disturbances Ears: ABSENT: hearing changes Cardiovascular: ABSENT: chest pain, dyspnea on exertion, edema, orthropnea, palpitations Respiratory: ABSENT: cough, hemoptysis Gastrointestinal: PRESENT: as per HPI, abdominal pain, nausea, vomiting. ABSENT: bloating, coffee ground emesis Genitourinary: ABSENT: dysuria, hematuria Musculoskeletal: ABSENT: joint swelling Integumentary: ABSENT: rash, wounds Neurological: ABSENT: abnormal gait, abnormal speech, confusion, dizziness, focal weakness, syncope Psychiatric: ABSENT: anxiety, depression, homidical ideation, suicidal ideation Endocrine: ABSENT: cold intolerance, heat intolerance, polydipsia, polyuria Hematologic/Lymphatic: ABSENT: easy bleeding, easy bruising Physical Exam Vital Signs: Temp Pulse Resp BP Pulse Ox 98.0 F 80 20 129/73 H 99 05/07/19 23:37 05/07/19 23:40 05/07/19 23:37 05/07/19 23:37 05/07/19 23:37 Intake & Output 05/06/19 05/07/19 05/08/19 11:59 11:59 11:59 Intake Total 2020 Balance 2020 Weight 69.9 kg General appearance: PRESENT: cooperative, mild distress, thin. ABSENT: disheveled Head exam: PRESENT: atraumatic, normocephalic Eye exam: PRESENT: conjunctiva pink, EOMI, PERRLA. ABSENT: scleral icterus Ear exam: PRESENT: normal external ear exam Mouth exam: PRESENT: dry mucosa, tongue midline. ABSENT: moist Neck exam: ABSENT: carotid bruit, JVD, lymphadenopathy, thyromegaly Respiratory exam: PRESENT: clear to auscultation mook. ABSENT: rales, rhonchi, wheezes Cardiovascular exam: PRESENT: RRR. ABSENT: diastolic murmur, rubs, systolic murmur Pulses: PRESENT: normal dorsalis pedis pul Vascular exam: PRESENT: normal capillary refill GI/Abdominal exam: PRESENT: normal bowel sounds, soft, tenderness. ABSENT: distended, firm, guarding, mass, organolmegaly, rebound Rectal exam: PRESENT: deferred Extremities exam: PRESENT: full ROM. ABSENT: calf tenderness, clubbing, pedal edema Neurological exam: PRESENT: alert, awake, oriented to person, oriented to place, oriented to time, oriented to situation, CN II-XII grossly intact. ABSENT: motor sensory deficit Psychiatric exam: PRESENT: appropriate affect, normal mood. ABSENT: homicidal ideation, suicidal ideation Skin exam: PRESENT: dry, intact, warm. ABSENT: cyanosis, rash Results Laboratory Results: 05/07/19 19:41 05/08/19 00:47 05/07/19 05/07/19 05/07/19 19:41 19:41 21:08 WBC 8.4 RBC 4.67 Hgb 15.3 Hct 44.2 MCV 95 MCH 32.8 MCHC 34.6 RDW 12.7 Plt Count 240 Seg Neutrophils % 61.6 Sodium 134.0 L Potassium 3.9 Chloride 100 Carbon Dioxide 14 L Anion Gap 20 H BUN 12 Creatinine 0.60 Est GFR ( Amer) > 60 Glucose 310 H Calcium 9.4 Magnesium 1.6 Urine Color Urine Appearance Urine pH Ur Specific [place] Urine Protein Urine Glucose (UA) Urine Ketones Urine Blood Urine Nitrite Ur Leukocyte Esterase Urine WBC (Auto) Urine RBC (Auto) 05/07/19 05/07/19 05/08/19 21:08 22:45 00:47 WBC RBC Hgb Hct MCV MCH MCHC RDW Plt Count Seg Neutrophils % Sodium 135.6 L 138.5 Potassium 4.1 3.8 Chloride 102 109 H Carbon Dioxide 19 L 20 L Anion Gap 15 10 BUN 12 10 Creatinine 0.59 0.43 L Est GFR ( Amer) > 60 > 60 Glucose 235 H 96 Calcium 8.9 8.7 Magnesium Urine Color YELLOW Urine Appearance CLEAR Urine pH 5.0 Ur Specific [place] 1.021 Urine Protein NEGATIVE Urine Glucose (UA) >=500 H Urine Ketones 80 H Urine Blood NEGATIVE Urine Nitrite NEGATIVE Ur Leukocyte Esterase NEGATIVE Urine WBC (Auto) 1 Urine RBC (Auto) 0 Assessment and Plan - Diagnosis (1) Ketoacidosis in insulin-dependent diabetes mellitus without coma Is this a current diagnosis for this admission?: Yes Plan: Diabetic ketoacidosis patient has had some degree of polyuria polydipsia with nausea and uncontrolled hyperglycemia with supporting labs. Patient will receive IV fluids IV insulin serial chemistries every 6 hours for evaluation for electrolyte repletion. Continued evaluation for underlying cause if not found Patient will require diabetic education and consideration of mental health evaluation. (2) Hypovolemia Is this a current diagnosis for this admission?: Yes Plan: IV hydration, follow-up chemistry (3) Bipolar disorder Is this a current diagnosis for this admission?: Yes Plan: Nonviolent, denies suicidal or homicidal ideation. Continue outpatient regiment - Time Time Spent with patient: 25-34 minutes - Inpatient Certification Medical Necessity: Need Close Monitoring Due to Risk of Patient Decompensation
[2019-05-08] MEDS: POTASSI CL 20 MEQ/D5-1/2NS 1L 1,000 ML IV PRN ×2 (02:04→06:03)
[2019-05-08] MEDS: HEPARIN SOD (PORCINE) 5,000 UNIT/ML 1 ML VIAL SUBCUT SCH ×3 (06:03→21:43)
[2019-05-08 06:42] LABS: ABSOLUTE EOSINOPHILS # (AUTO) 0.2 10^3/uL (0.0-0.6); ABSOLUTE LYMPHOCYTES (AUTO) 1.9 10^3/uL (0.5-4.7); ABSOLUTE MONOCYTES (AUTO) 0.3 10^3/uL (0.1-1.4); ABSOLUTE NEUT (AUTO) 2.7 10^3/uL (1.7-8.2); BASOPHILS % (AUTO) 0.4 % (0-2); HEMATOCRIT 40.2 % (37.9-51.0); HEMOGLOBIN 13.9 g/dL (13.5-17.0); LYMPHOCYTES % (AUTO) 37.2 % (13-45); MEAN CORPUSCULAR HEMOGLOBIN 32.5 pg (27.0-33.4); MEAN CORPUSCULAR HGB CONC 34.6 g/dL (32.0-36.0); MEAN CORPUSCULAR VOLUME 94 fl (80-97); MONOCYTES % (AUTO) 6.6 % (3-13); PLATELET COUNT 204 10^3/uL (150-450); RED BLOOD COUNT 4.27 10^6/uL (4.35-5.55); RED CELL DISTRIBUTION WIDTH 12.3 % (11.5-14.0); SEGMENTED NEUTROPHILS % (AUTO) 52.8 % (42-78); TOTAL CELLS COUNTED % (AUTO) 100 %; WHITE BLOOD COUNT 5.1 10^3/uL (4.0-10.5)
[2019-05-08 07:02] LABS: ANION GAP 9 (5-19); BLOOD UREA NITROGEN 7 mg/dL (7-20); CALCIUM 8.8 mg/dL (8.4-10.2); CARBON DIOXIDE 20 mmol/L (22-30); CHLORIDE 107 mmol/L (98-107); GLUCOSE 299 mg/dL (75-110); POTASSIUM 4.4 mmol/L (3.6-5.0)
[2019-05-08 09:12] LABS: ANION GAP 5 (5-19); BLOOD UREA NITROGEN 6 mg/dL (7-20); CALCIUM 8.7 mg/dL (8.4-10.2); CARBON DIOXIDE 23 mmol/L (22-30); CHLORIDE 111 mmol/L (98-107); GLUCOSE 144 mg/dL (75-110); POTASSIUM 4.4 mmol/L (3.6-5.0)
[2019-05-08] MEDS ORDERED: INSULIN GLARGINE,HUM.REC.ANLOG 1,000 UNIT/10 ML VIAL SUBCUT SCH ×2 (11:00→22:00)
[2019-05-08] MEDS: INSULIN LISPRO 100 UNIT/ML 3 ML VIAL SUBCUT SCH ×3 (12:52→21:43)
[2019-05-08 14:05] LABS: ANION GAP 12 (5-19); BLOOD UREA NITROGEN 5 mg/dL (7-20); CARBON DIOXIDE 20 mmol/L (22-30); CHLORIDE 104 mmol/L (98-107); GLUCOSE 286 mg/dL (75-110); POTASSIUM 4.5 mmol/L (3.6-5.0)
[2019-05-08] MEDS ORDERED: ONDANSETRON HCL INJ/PF 4 MG/2 ML SDV ONE (16:38)
[2019-05-08] MEDS ORDERED: ONDANSETRON HCL INJ/PF 4 MG/2 ML SDV IV PRN (16:39)
--- NOTE | 2019-05-08 17:03 | PDOC PROGRESS REPORT ---
Subjective Progress Note for:: 05/08/19 Subjective:: The patient is a 23-year-old male with past medical history significant for insulin-dependent diabetes mellitus admitted on 101 for DKA. Patient was seen on afternoon rounds with family members present. Is found resting in bed comfortably on room air. He reports slight nausea today, though has tolerated a consistent carb diet. He denies fever, chills, chest pain, palpitations, dyspnea, cough, abdominal pain, emesis, diarrhea. He has no questions or concerns at this time. He does require refills of his insulin and blood sugar testing supplies. No concerns per family. No concerns per nursing. Reason For Visit: DKA Physical Exam Vital Signs: Temp Pulse Resp BP Pulse Ox 97.8 F 76 20 137/81 H 100 05/08/19 03:11 05/08/19 07:00 05/08/19 03:11 05/08/19 03:11 05/08/19 03:11 Intake & Output 05/07/19 05/08/19 05/09/19 06:59 06:59 06:59 Intake Total 3751 Output Total 0 Balance 3751 Weight 55.3 kg General appearance: PRESENT: no acute distress, cooperative, thin, well- developed, well-nourished Head exam: PRESENT: atraumatic, normocephalic Eye exam: PRESENT: conjunctiva pink, EOMI, PERRLA. ABSENT: scleral icterus Ear exam: PRESENT: normal external ear exam Mouth exam: PRESENT: moist, tongue midline Neck exam: ABSENT: carotid bruit, JVD, lymphadenopathy, thyromegaly Respiratory exam: PRESENT: clear to auscultation mook, symmetrical, unlabored. ABSENT: rales, rhonchi, wheezes Cardiovascular exam: PRESENT: RRR. ABSENT: diastolic murmur, rubs, systolic murmur Pulses: PRESENT: normal dorsalis pedis pul Vascular exam: PRESENT: normal capillary refill GI/Abdominal exam: PRESENT: normal bowel sounds, soft. ABSENT: distended, guarding, mass, organolmegaly, rebound, tenderness Rectal exam: PRESENT: deferred Extremities exam: PRESENT: full ROM. ABSENT: calf tenderness, clubbing, pedal edema Neurological exam: PRESENT: alert, awake, oriented to person, oriented to place, oriented to time, oriented to situation, CN II-XII grossly intact. ABSENT: motor sensory deficit Psychiatric exam: PRESENT: appropriate affect, normal mood. ABSENT: homicidal ideation, suicidal ideation Skin exam: PRESENT: dry, intact, warm. ABSENT: cyanosis, rash Results Laboratory Results: 05/08/19 05:30 05/08/19 13:07 05/07/19 05/07/19 05/07/19 19:41 19:41 21:08 WBC 8.4 RBC 4.67 Hgb 15.3 Hct 44.2 MCV 95 MCH 32.8 MCHC 34.6 RDW 12.7 Plt Count 240 Seg Neutrophils % 61.6 Sodium 134.0 L Potassium 3.9 Chloride 100 Carbon Dioxide 14 L Anion Gap 20 H BUN 12 Creatinine 0.60 Est GFR ( Amer) > 60 Glucose 310 H Calcium 9.4 Magnesium 1.6 Urine Color Urine Appearance Urine pH Ur Specific [place] Urine Protein Urine Glucose (UA) Urine Ketones Urine Blood Urine Nitrite Ur Leukocyte Esterase Urine WBC (Auto) Urine RBC (Auto) 05/07/19 05/07/19 05/08/19 21:08 22:45 00:47 WBC RBC Hgb Hct MCV MCH MCHC RDW Plt Count Seg Neutrophils % Sodium 135.6 L 138.5 Potassium 4.1 3.8 Chloride 102 109 H Carbon Dioxide 19 L 20 L Anion Gap 15 10 BUN 12 10 Creatinine 0.59 0.43 L Est GFR ( Amer) > 60 > 60 Glucose 235 H 96 Calcium 8.9 8.7 Magnesium Urine Color YELLOW Urine Appearance CLEAR Urine pH 5.0 Ur Specific [place] 1.021 Urine Protein NEGATIVE Urine Glucose (UA) >=500 H Urine Ketones 80 H Urine Blood NEGATIVE Urine Nitrite NEGATIVE Ur Leukocyte Esterase NEGATIVE Urine WBC (Auto) 1 Urine RBC (Auto) 0 05/08/19 05/08/19 05/08/19 05:30 05:30 08:39 WBC 5.1 RBC 4.27 L Hgb 13.9 Hct 40.2 MCV 94 MCH 32.5 MCHC 34.6 RDW 12.3 Plt Count 204 Seg Neutrophils % 52.8 Sodium 135.5 L 138.9 Potassium 4.4 4.4 Chloride 107 111 H Carbon Dioxide 20 L 23 Anion Gap 9 5 BUN 7 6 L Creatinine 0.44 L 0.43 L Est GFR ( Amer) > 60 > 60 Glucose 299 H 144 H Calcium 8.8 8.7 Magnesium Urine Color Urine Appearance Urine pH Ur Specific [place] Urine Protein Urine Glucose (UA) Urine Ketones Urine Blood Urine Nitrite Ur Leukocyte Esterase Urine WBC (Auto) Urine RBC (Auto) 05/08/19 13:07 WBC RBC Hgb Hct MCV MCH MCHC RDW Plt Count Seg Neutrophils % Sodium 135.7 L Potassium 4.5 Chloride 104 Carbon Dioxide 20 L Anion Gap 12 BUN 5 L Creatinine 0.50 L Est GFR ( Amer) > 60 Glucose 286 H Calcium 9.0 Magnesium Urine Color Urine Appearance Urine pH Ur Specific [place] Urine Protein Urine Glucose (UA) Urine Ketones Urine Blood Urine Nitrite Ur Leukocyte Esterase Urine WBC (Auto) Urine RBC (Auto) Assessment and Plan - Diagnosis (1) DKA (diabetic ketoacidosis) Qualifiers: Diabetes mellitus type: type 1 Is this a current diagnosis for this admission?: Yes Plan: Patient was admitted to [facility] on continuous cardiac telemetry. He initially required an insulin drip but this is since been discontinued as his anion gap is closed and bicarb has returned to normal. He is transition to insulin. Accu-Cheks before meals and at bedtime with Humalog for sliding scale coverage. He is advanced to a consistent carb diet. He is to meet with registered dietitian and art educator. Discharge planning is consulted. Anticipated discharge to home today, however, afternoon glucose is greater than 300. This is likely due to requiring increased dose of Lantus. Patient confirms that he does take 36 units nightly. Patient is already received 10 units of Lantus this morning, will provide an additional 20 units this evening. Anticipate he will be ready to go home tomorrow morning. Hyperglycemia protocol in place. (2) Hypovolemia Is this a current diagnosis for this admission?: Yes Plan: Resolved. Secondary to DKA. (3) Bipolar disorder Is this a current diagnosis for this admission?: Yes - Time Time Spent with patient: 25-34 minutes Medications reviewed and adjusted accordingly: Yes Anticipated discharge: Home Within: within 24 hours
--- NOTE | 2019-05-08 17:04 | Progress Note Acknowledgement ---
Progress Note Acknowledgement Progess Note Acknowledgement: I, the undersigned member of the medical staff with appropriate privileges and with supervisory authority over Susanna Szymanski, a [facility] practice allied health professional, acknowledge that I have reviewed the progress notes entered on this patient, and in my professional judgment believe that the assessment made and/or any care evidenced was appropriate
[2019-05-08 17:31] LABS: ANION GAP 14 (5-19); BLOOD UREA NITROGEN 10 mg/dL (7-20); CALCIUM 9.4 mg/dL (8.4-10.2); CARBON DIOXIDE 21 mmol/L (22-30); CHLORIDE 101 mmol/L (98-107); GLUCOSE 367 mg/dL (75-110); POTASSIUM 4.8 mmol/L (3.6-5.0)
[2019-05-08] MEDS: DOCUSATE SODIUM 100 MG CAPSULE PO SCH ×2 (18:42→18:44)
[2019-05-08] MEDS: NICOTINE 21 MG/24 HR PATCH.TD24 TD SCH (19:36)
[2019-05-09 05:37] LABS: HEMOGLOBIN 15.5 g/dL (13.5-17.0); MEAN CORPUSCULAR HEMOGLOBIN 32.2 pg (27.0-33.4); MEAN CORPUSCULAR HGB CONC 34.5 g/dL (32.0-36.0); MEAN CORPUSCULAR VOLUME 93 fl (80-97); PLATELET COUNT 200 10^3/uL (150-450); RED BLOOD COUNT 4.83 10^6/uL (4.35-5.55); RED CELL DISTRIBUTION WIDTH 12.4 % (11.5-14.0); WHITE BLOOD COUNT 4.7 10^3/uL (4.0-10.5)
[2019-05-09] MEDS: HEPARIN SOD (PORCINE) 5,000 UNIT/ML 1 ML VIAL SUBCUT SCH ×2 (06:01→14:54)
[2019-05-09 06:06] LABS: ANION GAP 10 (5-19); BLOOD UREA NITROGEN 13 mg/dL (7-20); CALCIUM 9.6 mg/dL (8.4-10.2); CARBON DIOXIDE 24 mmol/L (22-30); CHLORIDE 105 mmol/L (98-107); GLUCOSE 184 mg/dL (75-110); POTASSIUM 4.1 mmol/L (3.6-5.0)
[2019-05-09] MEDS: INSULIN LISPRO 100 UNIT/ML 3 ML VIAL SUBCUT SCH ×3 (08:14→17:31)
[2019-05-09] MEDS: DOCUSATE SODIUM 100 MG CAPSULE PO SCH (09:25)
[2019-05-09] MEDS: NICOTINE 21 MG/24 HR PATCH.TD24 TD SCH (09:28)
[2019-05-09 16:11] VITALS: BP 118/69
--- NOTE | 2019-05-10 18:38 | PDOC DISCHARGE SUMMARY ---
General - Admit/Disc Date/PCP Admission Date/Primary Care Provider: 05/07/19 20:53 Discharge Date: 05/09/19 - Discharge Diagnosis (1) DKA (diabetic ketoacidosis) Is this a current diagnosis for this admission?: Yes (2) Hypovolemia Is this a current diagnosis for this admission?: Yes (3) Bipolar disorder Is this a current diagnosis for this admission?: Yes - Additional Information Resuscitation Status: Full Code Discharge Diet: Diabetic Discharge Activity: Activity As Tolerated, Balance Activity w/Rest Prescriptions: Insulin Lispro [Humalog Insulin (Lispro) 100 unit/mL] 0 unit SUBCUT .SLD SCALE #1 vial Insulin Glargine,Hum.rec.anlog [Lantus Insulin 100 Unit/1 ml 10 ml] 36 unit SUBCUT QHS #1 vial Home Medications: Acetaminophen [Tylenol 325 mg Tablet] 650 mg PO Q4HP PRN tablet 05/08/19 Insulin Glargine,Hum.rec.anlog [Lantus Insulin 100 Unit/1 ml 10 ml] 36 unit SUBCUT QHS #1 vial 05/08/19 Insulin Lispro [Humalog Insulin (Lispro) 100 unit/mL] 0 unit SUBCUT .SLD SCALE #1 vial 05/08/19 History of Present Illness History of Present Illness: Per H&P by Dr. Pink: JAMIL WYLIE is a 23 year old male with a past medical history of insulin-dependent diabetes, intermittent explosive disorder and lifestyle, medication noncompliance. He presents with 48 hours of polyuria, polydipsia, uncontrolled blood sugar developing abdominal pain nausea vomiting of gastric content. He admits to noncompliance with his Lantus insulin. He denies running out of his medication, recreational drugs, active illness and is otherwise felt well. In the emergency room is found to have diabetic ketoacidosis receiving lactated Ringer's, insulin and referred to the hospitalist for admission. Hospital Course Hospital Course: The patient was admitted to [facility] on continuous cardiac telemetry. He was initially placed in n.p.o. status, provided aggressive IV fluid resuscitation, and placed on an insulin drip. The patient's anion gap closed, bicarb returned to normal, and improved glucose control was obtained. Patient was transitioned to his home dose Lantus with sliding scale insulin. His diet w as advanced to a consistent carb diet; unfortunately, his blood sugar became elevated to 425 which prompted him to remain in the hospital for an additional night for continued IV fluids and blood sugar control. The patient did have the opportunity to registered dietitian and the adult educator prior to discharge. Discharge planning was able to assist with the patient; he will not be followed by the [facility] in clinic which will be able to assist with his medication needs. At time of discharge, the patient was in stable condition, asymptomatic, with adequate blood glucose control while on a consistent carb diet. He is discharged home with self-care. He is advised to follow-up with his primary care provider within 1 week. He is instructed to follow a consistent carb diet to take his insulin as prescribed. Instructed to return to the emergency department as needed for any concerning symptoms. Physical Exam Vital Signs: Temp Pulse Resp BP Pulse Ox 98.6 F 72 18 118/69 98 05/09/19 17:42 05/09/19 17:42 05/09/19 17:42 05/09/19 15:14 05/09/19 17:42 Intake & Output 05/09/19 05/10/19 05/11/19 06:59 06:59 06:59 Intake Total 360 120 Balance 360 120 Weight 63.2 kg General appearance: PRESENT: no acute distress, thin, well-developed, well-nourished Head exam: PRESENT: atraumatic, normocephalic Eye exam: PRESENT: conjunctiva pink, EOMI, PERRLA. ABSENT: scleral icterus Ear exam: PRESENT: normal external ear exam Mouth exam: PRESENT: moist, tongue midline Neck exam: ABSENT: carotid bruit, JVD, lymphadenopathy, thyromegaly Respiratory exam: PRESENT: clear to auscultation mook. ABSENT: rales, rhonchi, wheezes Cardiovascular exam: PRESENT: RRR. ABSENT: diastolic murmur, rubs, systolic murmur Pulses: PRESENT: normal dorsalis pedis pul Vascular exam: PRESENT: normal capillary refill GI/Abdominal exam: PRESENT: normal bowel sounds, soft. ABSENT: distended, guarding, mass, organolmegaly, rebound, tenderness Rectal exam: PRESENT: deferred Extremities exam: PRESENT: full ROM. ABSENT: calf tenderness, clubbing, pedal edema Neurological exam: PRESENT: alert, awake, oriented to person, oriented to place, oriented to time, oriented to situation, CN II-XII grossly intact. ABSENT: motor sensory deficit Psychiatric exam: PRESENT: appropriate affect, normal mood. ABSENT: homicidal ideation, suicidal ideation Skin exam: PRESENT: dry, intact, warm. ABSENT: cyanosis, rash Results Laboratory Results: 05/09/19 05:19 05/09/19 05:19 Qualifiers - * PATIENT BEING DISCHARGED WITH ANY OF THE FOLLOWING DIAGNOSIS: No Acute Heart Failure - Is this a Heart Failure Patient?: No Plan Discharge Plan: The patient is discharged to home, in stable condition, to self-care. He is instructed to follow-up with his primary care provider within 1 week. He is advised of the importance of continuing a consistent carb diet and taking his insulin as prescribed. He is provided refills of Lantus and Humalog. He denies the need for prescriptions for insulin syringes, lancets, and test strips. He is encouraged to drink plenty of water and to avoid prolonged heat exposure. He is instructed to return to the emergency department as needed for any concerning symptoms. Time Spent: Greater than 30 Minutes
== END 2019-05-09 17:56 | disposition home or self-care (01) | DRG 639 ==
LOC: ER 19:23 → EH 20:53 → 3S 23:22
PROVIDERS: ADMIT Internal Medicine; ATTEND Internal Medicine
DX: E10.10 Type 1 diabetes mellitus with ketoacidosis without coma (principal); F31.9 Bipolar disorder, unspecified; F63.81 Intermittent explosive disorder; K21.9 Gastro-esophageal reflux disease without esophagitis; F17.210 Nicotine dependence, cigarettes, uncomplicated; E86.1 Hypovolemia; Z79.4 Long term (current) use of insulin; Z91.14 Patient's other noncompliance with medication regimen; Z82.61 Family history of arthritis; Z82.49 Family history of ischemic heart disease and other diseases of the circulatory system; Z83.3 Family history of diabetes mellitus; Z83.6 Family history of other diseases of the respiratory system
CPT/HCPCS: 36415; 80048; 80307; 81001; 82962; 83735; 85025; 85027; 93005; 93010; 96360; 99291; J1644; J1815; J2405; J3480; J7030; J7050; J7120

== ENCOUNTER 2019-08-04 00:42 | Emergency (ER) | payer SELFPAY ==
--- NOTE | 2019-08-04 02:03 | RADIOLOGY REPORT (SQ) ---
EXAM DESCRIPTION: XR WRIST 1-2 VIEWS COMPLETED DATE/TME: 08/04/2019 00:00 CLINICAL HISTORY: 24 years Male, bone pain COMPARISON: None. Findings: Bones, joints, and soft tissues of the LEFT XR WRIST 2 VIEWS appear intact. IMPRESSION: No acute findings.
[2019-08-04] MEDS ORDERED: CEPHALEXIN 500 MG CAPSULE PO ONE (03:17)
--- NOTE | 2019-08-04 03:20 | ER Document Report ---
HPI - HPI Time Seen by Provider: 08/04/19 03:05 Pain Level: Denies Context: Patient is a 24-year-old male that comes emergency department for chief complaint of injury to the left wrist. He states this happened almost 2 days ago, he was cleaning a lawnmower blade when a piece of shaving accidentally got into his forearm/wrist area. This caused a small skin flap wound. He states he cleaned it, dressed it, however he checked on it today and he was squeezing it and he thought he squeezed out a little piece of metal, he also squeezing it and there was a swollen appearance sticking out that he was unsure about and he became concerned. He also states that it is starting to get a little bit red. He denies any significantly tender, he denies swelling, he denies fever/chills. He has a type I diabetic. His tetanus is reportedly up-to-date within 5 years. He denies any other complaints. - CONSTITUTIONAL Constitutional: DENIES: Fever, Chills - REPRODUCTIVE Reproductive: DENIES: : Past Medical History - General Information source: Patient - Social History Smoking Status: Current Every Day Smoker Frequency of alcohol use: Rare Drug Abuse: None Lives with: Family Family History: Arthritis, CAD, COPD, CVA, DM, Hyperlipidemia, Hypertension, Thyroid Disfunction Patient has suicidal ideation: No Patient has homicidal ideation: No - Past Medical History Cardiac Medical History: Denies: Hx Congestive Heart Failure, Hx Coronary Artery Disease, Hx Heart Attack, Hx Hypertension Pulmonary Medical History: Denies: Hx Asthma, Hx Bronchitis, Hx COPD, Hx Pneumonia, Hx Tuberculosis Neurological Medical History: Reports: Hx Migraine. Denies: Hx Cerebrovascular Accident, Hx Seizures, Hx Parkinson's Disease Endocrine Medical History: Reports: Hx Diabetes Mellitus Type 1. Denies: Hx Hyperthyroidism, Hx Hypothyroidism Renal/ Medical History: Denies: Hx Benign Prostatic Hyperplasia, Hx End Stage Renal Disease, Hx Kidney Stones, Hx Peritoneal Dialysis GI Medical History: Reports: Hx Gastroesophageal Reflux Disease. Denies: Hx Cirrhosis, Hx Hepatitis, Hx Ulcer Musculoskeletal Medical History: Denies Hx Arthritis, Denies Hx Gout, Denies Hx Multiple Sclerosis Skin Medical History: Denies Hx Eczema, Denies Hx Psoriasis Psychiatric Medical History: Reports: Hx Bipolar Disorder, Hx Depression Denies: Hx Schizophrenia Infectious Medical History: Denies: Hx Hepatitis Past Surgical History: Reports: Hx Myringotomy, Hx Orthopedic Surgery - right hand, Other - ear tubes when was 5 months old - Immunizations Immunizations up to date: Yes Hx Diphtheria, Pertussis, Tetanus Vaccination: Yes - 2016 Vertical Provider Document - CONSTITUTIONAL General Appearance: WD/WN, No Apparent Distress - INFECTION CONTROL TRAVEL OUTSIDE OF THE [place] IN LAST 30 DAYS: No - HEENT HEENT: Atraumatic, Normocephalic - NECK Neck: Normal Inspection - RESPIRATORY Respiratory: Breath Sounds Normal, No Respiratory Distress - CARDIOVASCULAR Cardiovascular: Regular Rate, Regular Rhythm - GI/ABDOMEN Gastrointestinal: Abdomen Soft, Abdomen Non-Tender - BACK Back: Normal Inspection - MUSCULOSKELETAL/EXTREMETIES Musculoskeletal/Extremeties: MAEW, FROM, Tender - Over the left wrist over the extensor surface there is a tiny flap wound that is about a quarter of a centimeter in length, partial-thickness, no current bleeding. Minimal questionable surrounding erythema, no swelling, discharge, or significant tenderness. Normal range of motion of the wrist, elbow, hand. No snuffbox tenderness. Normal capillary refill and sensation. - NEURO Level of Consciousness: Awake, Alert, Appropriate Motor/Sensory: No Motor Deficit, No Sensory Deficit - DERM Integumentary: Warm, Dry, No Rash Course - Re-evaluation Re-evalutation: No foreign body on x-ray, no fracture noted, exam with some mild erythema but no overt cellulitis or concerning signs of injury. Because patient has type 1 diabetes and he probably pulled out a small foreign body he will be covered with antibiotics. Patient was reassured otherwise. Discussed treatment, follow-up, return precautions. Patient states appreciation and agreement. - Vital Signs Vital signs: Temp Pulse Resp BP Pulse Ox 98.0 F 115 H 16 145/90 H 98 08/04/19 00:46 08/04/19 00:46 08/04/19 00:46 08/04/19 00:46 08/04/19 00:46 Discharge - Discharge Clinical Impression: Laceration of left wrist Qualifiers: Encounter type: initial encounter Qualified Code(s): S61.512A - Laceration without foreign body of left wrist, initial encounter Condition: Stable Disposition: HOME, SELF-CARE Additional Instructions: Your x-ray is normal. Because I believe you had a foreign body in the area we are covering you with antibiotics to prevent this from getting infected. Keep area clean, clean with soap and water, keep topical antibiotic and clean dressing over the area. Follow-up with primary care. Return for any signs of infection including swelling, spreading redness, discolored discharge, fever, or any other concerning symptoms. Prescriptions: Cephalexin Monohydrate [Keflex 500 mg Capsule] 500 mg PO TID 5 Days #15 capsule
[2019-08-04 03:32] VITALS: BP 143/83
== END 2019-08-04 03:30 | disposition home or self-care (01) ==
LOC: ER 00:42
DX: S61.512A Laceration without foreign body of left wrist, initial encounter (principal); W26.8XXA Contact with other sharp object(s), not elsewhere classified, initial encounter; F17.200 Nicotine dependence, unspecified, uncomplicated; E10.9 Type 1 diabetes mellitus without complications
CPT/HCPCS: 99283